=== PATIENT | female | born 1995 | race Caucasian/White ===

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

== ENCOUNTER 2017-01-18 20:52 | Emergency (ER) | payer OTHER ==
--- NOTE | 2017-01-18 21:11 | ERPHSYRPT ---
- History of Present Illness Time Seen by Provider: 01/18/17 21:00 Source: patient, family (sister) Exam Limitations: no limitations Physician History: patient presents with acute depression and suicidal thoughts sense boyfriend left; thoughts but hasn;t done anything to harm herself; similar history 21/2 years ago admitted to [facility]; called them and she was referred here; still saying wants to harm herself; not sleeping or eating well; may be pregnanct; gopo; last MP was november; some am nausea Timing/Duration: today (worse), yesterday (onset), worse Severity of Symptoms-Max: severe Severity of Symptoms-Current: severe Context related to: significant other Suicidal thoughts: specific plan Associated Symptoms: anxiety, depressed, impaired concentration, insomnia, suicidal ideation Previous symptoms: same symptoms as today (2.5 years ago) Allergies/Adverse Reactions: amphetamine [From Adderall] Allergy (Verified 01/18/17 21:17) Swelling dextroamphetamine [From Adderall] Allergy (Verified 01/18/17 21:17) Swelling Home Medications: No Home Meds [No Home Meds] 1 [facility] UD 12/19/16 [History] Hx Tetanus, Diphtheria Vaccination/Date Given: No (unknown) Hx Influenza Vaccination/Date Given: No Hx Pneumococcal Vaccination/Date Given: No - Past Medical History Pertinent Past Medical History: Yes Psycho-Social History: Anxiety, Attention Deficit Disorder, Bipolar, Depression - Past Surgical History Past Surgical History: Yes - Social History Smoking Status: Former smoker Exposure to second hand smoke: No Alcohol Use: None Drug Use: none Significant Family History: no pertinent family hx - Female History Hx Now: No (unknown late for LMP) - Review of Systems Constitutional: Malaise, No Fever, No Chills, No Weight Loss Eyes: No Symptoms Ears, Nose, & Throat: No Symptoms Respiratory: No Cough, No Dyspnea, No Wheezing Cardiac: No Chest Pain, No Palpitations, No Syncope Abdominal/Gastrointestinal: Nausea, No Abdominal Pain, No Vomiting, No Diarrhea , No Constipation Genitourinary Symptoms: No Symptoms Musculoskeletal: No Symptoms Skin: No Symptoms Neurological: No Symptoms Psychological: Anxiety, Depression, Suicidal Ideations, No Alcohol Abuse, No Drug Abuse Endocrine: No Symptoms Hematologic/Lymphatic: No Symptoms Immunological/Allergic: No Symptoms - Nursing Vital Signs Nursing Vital Signs: Initial Vital Signs Temperature 98.5 F 01/18/17 21:00 Pulse Rate 128 H 01/18/17 21:00 Respiratory Rate 18 01/18/17 21:00 Blood Pressure 166/90 01/18/17 21:00 O2 Sat by Pulse Oximetry 100 01/18/17 21:00 Pain Scale Pain Intensity 0 - Physical Exam General Appearance: moderate distress, alert, anxiety, obese (mild), other ( depressed with suicidal thoughts) Eyes, Ears, Nose, Throat Exam: normal ENT inspection, TMs normal, pharynx normal , moist mucous membranes Neck Exam: normal inspection, non-tender, supple, full range of motion, No Brudzinski, No meningismus, No JVD Respiratory Exam: normal breath sounds, lungs clear, airway intact, No chest tenderness, No respiratory distress, No rhonchi, No wheezing Cardiovascular Exam: regular rate/rhythm, normal heart sounds, normal peripheral pulses, tachycardia (128), capillary refill <2 sec, No murmur Gastrointestinal/Abdominal Exam: soft, normal bowel sounds, No tenderness, No guarding, No rebound, No organomegaly Extremities Exam: normal inspection, normal range of motion, No evidence of injury, No edema, No tenderness Peripheral Pulses: carotid (R): 4+, carotid (L): 4+, femoral (R): 4+, femoral (L ): 4+, dorsalis-pedis (R): 3+, dorsalis-pedis (L): 3+ Current Suicidality: has suicide plan Neurological Exam: alert, calm, 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, oriented x 3, responds to pain, depressed affect, flat Appearance: appropriate insight, no memory impairment, disheveled Behavior/Eye Contact/Speech: alert & cooperative, cooperative, avoids eye contact, refused to answer, decreased rate of speech Thoughts/Hallucinations: no apparent hallucination, No delusions, No grandiose, No persecution, No bahai Skin Exam: normal color, warm, dry, No rash, No petechiae SpO2 Interpretation: normal SpO2: 100 Oxygen Delivery: Room Air - Course Nursing assessment & vital signs reviewed: Yes Ordered Tests: Active Orders 24 hr Category Date Time Status Psychiatric Evaluation STAT Care 01/18/17 21:05 Active Re-Check Vital Signs STAT Care 01/18/17 21:05 Active ACETAMINOPHEN Stat Lab 01/18/17 21:20 Completed CBC W DIFF Stat Lab 01/18/17 21:20 Completed CMP Stat Lab 01/18/17 21:20 Completed CULTURE,URINE Stat Lab 01/18/17 21:30 Received ETHYL ALCOHOL Stat Lab 01/18/17 21:20 Completed HCG QUALITATIVE,SERUM Stat Lab 01/18/17 21:20 Completed SALICYLATE Stat Lab 01/18/17 21:20 Completed UA W/ MICROSCOPIC Stat Lab 01/18/17 21:30 Completed Urine Triage Profile Stat Lab 01/18/17 21:30 Completed Lab/Rad Data: Laboratory Result Diagrams 01/18/17 21:20 01/18/17 21:20 Laboratory Results 01/18/17 01/18/17 01/18/17 Range/Units 21:30 21:30 21:20 WBC (4.0-10.5) K/mm3 RBC (4.1-5.4) M/mm3 Hgb (12.0-16.0) gm/dl Hct (35-47) % MCV (78-100) fl MCH (26-32) pg MCHC (32-36) g/dl RDW (11.5-14.0) % Plt Count (150-450) K/mm3 MPV (6-9.5) fl Gran % (36.0-66.0) % Lymphocytes % (24.0-44.0) % Monocytes % (0.0-12.0) % Eosinophils % (0.00-5.0) % Basophils % (0.0-0.4) % Basophils # (0-0.4) Sodium (136-145) mEq/L Potassium (3.5-5.1) mEq/L Chloride (98-107) mEq/L Carbon Dioxide (21-32) mEq/L Anion Gap (5-15) MEQ/L BUN (9-20) mg/dL Creatinine (0.55-1.30) mg/dl Estimated GFR ML/MIN Glucose (70-110) MG/DL Calcium (8.5-10.1) mg/dL Total Bilirubin (0.2-1.0) mg/dL AST (15-37) U/L ALT (12-78) U/L Alkaline Phosphatase (46-116) U/L Serum Total Protein (6.4-8.2) gm/dL Albumin (3.4-5.0) g/dL Serum , Qual NEGATIVE (Negative) Ur Collection Type CLEAN CATCH Urine Color YELLOW (YELLOW) Urine Appearance SLIGHTLY CLOUDY (CLEAR) Urine pH 8.5 (5-6) Ur Specific [place] 1.010 (1.005-1.025) Urine Protein TRACE (Negative) Urine Ketones NEGATIVE (NEGATIVE) Urine Blood 50 (0-5) Alfonso/ul Urine Nitrite NEGATIVE (NEGATIVE) Urine Bilirubin NEGATIVE (NEGATIVE) Urine Urobilinogen 4 (0-1) mg/dL Ur Leukocyte Esterase 1+ (NEGATIVE) Urine Microscopic RBC 0-2 (0-2) /HPF Urine Microscopic WBC 2-5 (0-5) /HPF Ur Epithelial Cells MODERATE (FEW) /HPF Urine Bacteria MODERATE (NEGATIVE) /HPF Urine Mucus SLIGHT (NEGATIVE) /HPF Urine Glucose NEGATIVE (NEGATIVE) mg/dL Salicylates (2.8-20.0) mg/dl Urine Opiates Level NEG. (NEGATIVE) Ur Methadone NEG. (NEGATIVE) Acetaminophen (10-30) ug/ml Urine Barbiturates NEG. (NEGATIVE) Ur Phencyclidine (PCP) NEG. (NEGATIVE) Urine Amphetamine NEG. (NEGATIVE) U Benzodiazepine Level NEG. (NEGATIVE) Urine Cocaine NEG. (NEGATIVE) Urine Marijuana (THC) NEG. (NEGATIVE) Ethyl Alcohol (0.00-0.01) % Specimen Received 01/18/17:2135 01/18/17 01/18/17 Range/Units 21:20 21:20 WBC 12.0 H (4.0-10.5) K/mm3 RBC 4.44 (4.1-5.4) M/mm3 Hgb 11.8 L (12.0-16.0) gm/dl Hct 37.3 (35-47) % MCV 84.0 (78-100) fl MCH 26.5 (26-32) pg MCHC 31.6 L (32-36) g/dl RDW 13.2 (11.5-14.0) % Plt Count 287 (150-450) K/mm3 MPV 10.8 H (6-9.5) fl Gran % 75.8 H (36.0-66.0) % Lymphocytes % 17.0 L (24.0-44.0) % Monocytes % 5.7 (0.0-12.0) % Eosinophils % 1.3 (0.00-5.0) % Basophils % 0.2 (0.0-0.4) % Basophils # 0.02 (0-0.4) Sodium 140 (136-145) mEq/L Potassium 3.6 (3.5-5.1) mEq/L Chloride 105 (98-107) mEq/L Carbon Dioxide 24.9 (21-32) mEq/L Anion Gap 13.7 (5-15) MEQ/L BUN 6 L (9-20) mg/dL Creatinine 0.92 (0.55-1.30) mg/dl Estimated GFR > 60 ML/MIN Glucose 121 H (70-110) MG/DL Calcium 9.5 (8.5-10.1) mg/dL Total Bilirubin 0.60 (0.2-1.0) mg/dL AST 20 (15-37) U/L ALT 23 (12-78) U/L Alkaline Phosphatase 83 (46-116) U/L Serum Total Protein 7.9 (6.4-8.2) gm/dL Albumin 3.8 (3.4-5.0) g/dL Serum , Qual (Negative) Ur Collection Type Urine Color (YELLOW) Urine Appearance (CLEAR) Urine pH (5-6) Ur Specific [place] (1.005-1.025) Urine Protein (Negative) Urine Ketones (NEGATIVE) Urine Blood (0-5) Alfonso/ul Urine Nitrite (NEGATIVE) Urine Bilirubin (NEGATIVE) Urine Urobilinogen (0-1) mg/dL Ur Leukocyte Esterase (NEGATIVE) Urine Microscopic RBC (0-2) /HPF Urine Microscopic WBC (0-5) /HPF Ur Epithelial Cells (FEW) /HPF Urine Bacteria (NEGATIVE) /HPF Urine Mucus (NEGATIVE) /HPF Urine Glucose (NEGATIVE) mg/dL Salicylates < 2.8 L (2.8-20.0) mg/dl Urine Opiates Level (NEGATIVE) Ur Methadone (NEGATIVE) Acetaminophen < 2.0 L (10-30) ug/ml Urine Barbiturates (NEGATIVE) Ur Phencyclidine (PCP) (NEGATIVE) Urine Amphetamine (NEGATIVE) U Benzodiazepine Level (NEGATIVE) Urine Cocaine (NEGATIVE) Urine Marijuana (THC) (NEGATIVE) Ethyl Alcohol < 0.010 (0.00-0.01) % Specimen Received reviewed - Progress Progress: re-examined (several times) Progress Note: 01/18/17 21:13 labs pending; will get Psyche evaluation, monitor and recheck; sister at bedside 01/18/17 21:44 cbc shows slightly elevated wbc 12, other frazier fairly normal; other labs pending ; no change on recheck; Psyche eval pending; will monitor and recheck 01/18/17 21:52 BS; renal functions, lytes , chem profile, all wnl; ETOH, Acet and Salic all absent; tox screen pending; no change in exam, will monitor 01/18/17 23:25 tox screen neg; [facility]; EMS will be notified; and transfer arranged; patient notified Discussed with : Other ([facility] accepted for admission) Will see patient in: other ([facility]) Counseled pt/family regarding: lab results, diagnosis, need for follow-up, smoking cessation - Departure Time of Disposition: 23:27 Departure Disposition: Transfer (to [facility] for admission) Clinical Impression: Acute depression, Suicidal ideation Condition: Serious Critical Care Time: No Referrals: SNEHA ARZOLA [Primary Care Provider] - Instructions: Bipolar Disorder
[2017-01-18 21:27] LABS: BASOPHIL % 0.2 % (0.0-0.4); Eosinophil % 1.3 % (0.00-5.0); Granulocytes % 75.8 % (36.0-66.0); Mean Platelet Volume 10.8 fl (6-9.5); Monocytes % 5.7 % (0.0-12.0); Platelet Count 287 K/mm3 (150-450); Red Blood Count 4.44 M/mm3 (4.1-5.4); Red Cell Distribution Width 13.2 % (11.5-14.0)
[2017-01-18 21:32] LABS: Mean Corpuscular Hemoglobin 26.5 pg (26-32)
[2017-01-18 21:47] LABS: ALBUMIN 3.8 g/dL (3.4-5.0); ALKALINE PHOSPHATASE 83 U/L (46-116); ANION GAP 13.7 MEQ/L (5-15); BLOOD UREA NITROGEN 6 mg/dL (9-20); CHLORIDE 105 mEq/L (98-107); Carbon Dioxide 24.9 mEq/L (21-32); Glucose 121 MG/DL (70-110); Potassium 3.6 mEq/L (3.5-5.1); SGOT/AST 20 U/L (15-37); SGPT/ALT 23 U/L (12-78); SODIUM 140 mEq/L (136-145); Total Protein 7.9 gm/dL (6.4-8.2)
[2017-01-18 21:48] LABS: ACETAMINOPHEN < 2.0 ug/ml (10-30); ETHYL ALCOHOL < 0.010 % (0.00-0.01)
[2017-01-18 21:51] LABS: ADD URINE CULTURE? YES (NO); Bilirubin NEGATIVE (NEGATIVE); Blood 50 Ery/ul (0-5); COMPLETE URINE MICROSCOPIC? YES; Collection Type CLEAN CATCH; Glucose NEGATIVE (NEGATIVE); Leukocyte Esterase 1+ (NEGATIVE)
[2017-01-18 21:52] LABS: Bacteria MODERATE /HPF (NEGATIVE); Epithelial Cells MODERATE /HPF (FEW); Mucus SLIGHT /HPF (NEGATIVE)
[2017-01-18 22:54] VITALS: BP 121/72; PULSE 92
[2017-01-18 23:29] VITALS: O2SAT 100
== END 2017-01-19 00:10 ==
LOC: ED 20:52
DX: F32.9 Major depressive disorder, single episode, unspecified (principal); R45.851 Suicidal ideations
CPT/HCPCS: 36415; 80053; 80307; 81000; 84703; 85025; 87077; 87086; 87186; 90791; 99281; 99285; G0481; Q3014

== ENCOUNTER 2017-02-19 19:55 | Emergency (ER) | payer OTHER ==
--- NOTE | 2017-02-19 20:13 | ERPHSYRPT ---
- History of Present Illness Time Seen by Provider: 02/19/17 20:02 Historian: patient Exam Limitations: no limitations Physician History: FOR THE PAST 3 DAYS PT HAS HAD LOWER ABDOMINAL CRAMPS; FOR THE PAST 2 DAYS NAUSEA, INTERMITTENT HEADACHE AND DIARRHEA X8; TODAY VOMITING X 6 AND TEMPERATURE OF 99.2 DEGREES. Allergies/Adverse Reactions: amphetamine [From Adderall] Allergy (Verified 01/18/17 21:17) Swelling dextroamphetamine [From Adderall] Allergy (Verified 01/18/17 21:17) Swelling Home Medications: Aripiprazole 10 mg [Abilify 10 MG] 10 mg PO DAILY 02/19/17 [History] Hx Tetanus, Diphtheria Vaccination/Date Given: No (unknown) Hx Influenza Vaccination/Date Given: No Hx Pneumococcal Vaccination/Date Given: No - Review of Systems Constitutional: Other (TEMPERATURE OF 99.2 DEGREES TODAY.) Respiratory: No Dyspnea Cardiac: No Chest Pain Abdominal/Gastrointestinal: Abdominal Pain, Nausea, Vomiting, Diarrhea Neurological: Headache All Other Systems: Reviewed and Negative - Past Medical History Pertinent Past Medical History: Yes Psycho-Social History: Anxiety, Attention Deficit Disorder, Bipolar, Depression - Past Surgical History Past Surgical History: Yes - Social History Smoking Status: Former smoker How long have you smoked: 2 yrs Exposure to second hand smoke: No Alcohol Use: None Drug Use: none Patient Lives Alone: No Significant Family History: no pertinent family hx - Female History Hx Now: No (unknown late for LMP) - Nursing Vital Signs Nursing Vital Signs: Initial Vital Signs Temperature 98.4 F 02/19/17 20:01 Pulse Rate 99 H 02/19/17 20:01 Respiratory Rate 20 02/19/17 20:01 Blood Pressure 158/79 02/19/17 20:01 O2 Sat by Pulse Oximetry 100 02/19/17 20:01 Pain Scale Pain Intensity 2 - Physical Exam General Appearance: alert Eye Exam: PERRL/EOMI Ears, Nose, Throat Exam: TMs normal, pharyngeal erythema (MILD) Neck Exam: normal inspection Respiratory Exam: lungs clear Cardiovascular Exam: normal heart sounds Gastrointestinal/Abdomen Exam: soft, normal bowel sounds, No tenderness Back Exam: normal range of motion Extremity Exam: normal inspection, No pedal edema Neurologic Exam: alert, cooperative, normal mood/affect Skin Exam: warm, dry - Course Nursing assessment & vital signs reviewed: Yes Ordered Tests: Active Orders 24 hr Category Date Time Status AMYLASE Stat Lab 02/19/17 20:27 Completed CBC W DIFF Stat Lab 02/19/17 20:27 Completed CMP Stat Lab 02/19/17 20:27 Completed CULTURE, THROAT Stat Lab 02/19/17 20:27 Received HCG QUALITATIVE,SERUM Stat Lab 02/19/17 20:27 Completed LIPASE Stat Lab 02/19/17 20:27 Completed [place] Screen Stat Lab 02/19/17 20:27 Completed STREP SCREEN-BETA A Stat Lab 02/19/17 20:27 Completed UA W/RFX UR CULTURE Stat Lab 02/19/17 21:00 Completed Lab/Rad Data: Laboratory Result Diagrams 02/19/17 20:27 02/19/17 20:27 Laboratory Results 02/19/17 02/19/17 02/19/17 Range/Units 21:00 20:27 20:27 WBC (4.0-10.5) K/mm3 RBC (4.1-5.4) M/mm3 Hgb (12.0-16.0) gm/dl Hct (35-47) % MCV (78-100) fl MCH (26-32) pg MCHC (32-36) g/dl RDW (11.5-14.0) % Plt Count (150-450) K/mm3 MPV (6-9.5) fl Gran % (36.0-66.0) % Lymphocytes % (24.0-44.0) % Monocytes % (0.0-12.0) % Eosinophils % (0.00-5.0) % Basophils % (0.0-0.4) % Basophils # (0-0.4) Sodium (136-145) mEq/L Potassium (3.5-5.1) mEq/L Chloride (98-107) mEq/L Carbon Dioxide (21-32) mEq/L Anion Gap (5-15) MEQ/L BUN (9-20) mg/dL Creatinine (0.55-1.30) mg/dl Estimated GFR ML/MIN Glucose (70-110) MG/DL Calcium (8.5-10.1) mg/dL Total Bilirubin (0.2-1.0) mg/dL AST (15-37) U/L ALT (12-78) U/L Alkaline Phosphatase (46-116) U/L Serum Total Protein (6.4-8.2) gm/dL Albumin (3.4-5.0) g/dL Amylase (25-115) U/L Lipase (73-393) U/L Serum , Qual NEGATIVE (Negative) Ur Collection Type CLEAN CATCH Urine Color YELLOW (YELLOW) Urine Appearance CLEAR (CLEAR) Urine pH 6.0 (5-6) Ur Specific [place] 1.010 (1.005-1.025) Urine Protein NEGATIVE (Negative) Urine Ketones NEGATIVE (NEGATIVE) Urine Blood NEGATIVE (0-5) Alfonso/ul Urine Nitrite NEGATIVE (NEGATIVE) Urine Bilirubin NEGATIVE (NEGATIVE) Urine Urobilinogen NORMAL (0-1) mg/dL Ur Leukocyte Esterase NEGATIVE (NEGATIVE) Urine Glucose NEGATIVE (NEGATIVE) mg/dL Monoscreen NEGATIVE (Negative) Streptococcus Screen NEGATIVE (Negative) Specimen Received 02/19/17 2100 02/19/17 02/19/17 Range/Units 20:27 20:27 WBC 8.8 (4.0-10.5) K/mm3 RBC 4.49 (4.1-5.4) M/mm3 Hgb 11.8 L (12.0-16.0) gm/dl Hct 38.0 (35-47) % MCV 84.6 (78-100) fl MCH 26.2 (26-32) pg MCHC 31.1 L (32-36) g/dl RDW 13.7 (11.5-14.0) % Plt Count 265 (150-450) K/mm3 MPV 10.7 H (6-9.5) fl Gran % 66.8 H (36.0-66.0) % Lymphocytes % 24.3 (24.0-44.0) % Monocytes % 7.6 (0.0-12.0) % Eosinophils % 1.1 (0.00-5.0) % Basophils % 0.2 (0.0-0.4) % Basophils # 0.02 (0-0.4) Sodium 141 (136-145) mEq/L Potassium 3.5 (3.5-5.1) mEq/L Chloride 105 (98-107) mEq/L Carbon Dioxide 25.1 (21-32) mEq/L Anion Gap 14.8 (5-15) MEQ/L BUN 10 (9-20) mg/dL Creatinine 0.67 (0.55-1.30) mg/dl Estimated GFR > 60 ML/MIN Glucose 88 (70-110) MG/DL Calcium 9.1 (8.5-10.1) mg/dL Total Bilirubin 0.40 (0.2-1.0) mg/dL AST 12 L (15-37) U/L ALT 25 (12-78) U/L Alkaline Phosphatase 74 (46-116) U/L Serum Total Protein 7.7 (6.4-8.2) gm/dL Albumin 4.0 (3.4-5.0) g/dL Amylase 44 (25-115) U/L Lipase 161 (73-393) U/L Serum , Qual (Negative) Ur Collection Type Urine Color (YELLOW) Urine Appearance (CLEAR) Urine pH (5-6) Ur Specific [place] (1.005-1.025) Urine Protein (Negative) Urine Ketones (NEGATIVE) Urine Blood (0-5) Alfonso/ul Urine Nitrite (NEGATIVE) Urine Bilirubin (NEGATIVE) Urine Urobilinogen (0-1) mg/dL Ur Leukocyte Esterase (NEGATIVE) Urine Glucose (NEGATIVE) mg/dL Monoscreen (Negative) Streptococcus Screen (Negative) Specimen Received - Departure Time of Disposition: 22:48 Departure Disposition: Home Clinical Impression: VOMITING, DIARRHEA, ABDOMINAL CRAMPS Condition: Stable Critical Care Time: No Referrals: SNEHA ARZOLA [Primary Care Provider] - Instructions: Vomiting -- Adult, Diarrhea and Traveler's Diarrhea -- Adult, Abdominal Pain-Adult Additional Instructions: FOLLOW UP WITH PRIVATE DOCTOR TOMORROW. Prescriptions: Ondansetron [Zofran Odt] 4 mg PO Q4H PRN PRN #14 tab.rapdis PRN Reason: Nausea/Vomiting
[2017-02-19 20:30] LABS: BASOPHIL % 0.2 % (0.0-0.4); Eosinophil % 1.1 % (0.00-5.0); Granulocytes % 66.8 % (36.0-66.0); Lymphocytes % 24.3 % (24.0-44.0); Mean Cell Volume 84.6 fl (78-100); Mean Platelet Volume 10.7 fl (6-9.5); Monocytes % 7.6 % (0.0-12.0); Platelet Count 265 K/mm3 (150-450); Red Blood Count 4.49 M/mm3 (4.1-5.4); Red Cell Distribution Width 13.7 % (11.5-14.0); White Blood Count 8.8 K/mm3 (4.0-10.5)
[2017-02-19 20:42] LABS: Mean Corpuscular Hemoglobin 26.2 pg (26-32)
[2017-02-19 20:56] LABS: ALKALINE PHOSPHATASE 74 U/L (46-116); ANION GAP 14.8 MEQ/L (5-15); BLOOD UREA NITROGEN 10 mg/dL (9-20); CHLORIDE 105 mEq/L (98-107); Carbon Dioxide 25.1 mEq/L (21-32); Glucose 88 MG/DL (70-110); LIPASE 161 U/L (73-393); Potassium 3.5 mEq/L (3.5-5.1); SGOT/AST 12 U/L (15-37); SGPT/ALT 25 U/L (12-78); SODIUM 141 mEq/L (136-145); Total Protein 7.7 gm/dL (6.4-8.2)
[2017-02-19 22:11] VITALS: O2SAT 98
[2017-02-19 22:27] LABS: ADD URINE CULTURE? NO (NO); Bilirubin NEGATIVE (NEGATIVE); Blood NEGATIVE Ery/ul (0-5); COMPLETE URINE MICROSCOPIC? NO; Collection Type CLEAN CATCH; Glucose NEGATIVE (NEGATIVE); Leukocyte Esterase NEGATIVE (NEGATIVE)
[2017-02-19] MEDS ORDERED: Phenergan 25 MG INJ IM ONE (22:49)
[2017-02-19] MEDS ORDERED: Phenergan 25 MG INJ ONE (23:02)
[2017-02-19 23:10] VITALS: BP 148/78; PULSE 80
== END 2017-02-19 23:19 | disposition home or self-care (01) ==
LOC: ED 19:55
DX: R11.2 Nausea with vomiting, unspecified (principal); R19.7 Diarrhea, unspecified; R10.30 Lower abdominal pain, unspecified; R51 Headache
CPT/HCPCS: 36415; 80053; 81002; 82150; 83690; 84703; 85025; 86308; 87070; 87430; 96372; 99283; J2550

== ENCOUNTER 2017-12-23 16:17 | Emergency (ER) | payer OTHER ==
--- NOTE | 2017-12-23 16:55 | ERPHSYRPT ---
- History of Present Illness Time Seen by Provider: 12/23/17 16:51 Source: patient Exam Limitations: no limitations Patient Subjective Stated Complaint: pt complains of intermittent shortness of breath for 2 days. states she was sitting at the kitchen table today when she suddenly felt dizzy and short of breath. pt denies cough. pt denies fever. pt denies pain. Triage Nursing Assessment: pt is aox3, pupils perrl, resps easy and non labored , lung sounds are clear throughout all rivera, pt is able to speak in 6-7 word complete sentences. radial pulses are strong and equal. cap refill <3. pt skin in pale warm and dry. Physician History: The patient is a 22-year-old female with her boyfriend complaining that she has been "dizzy, nauseated, short of breath, and having pelvic pain for 2 days". All of these symptoms are intermittent. She is no longer short of breath. That lasted for a brief moment while at home today. When she tries to eat something she feels nauseated. She sometimes has pain on both sides of her groin. She stands up she sometimes is dizzy. She does not know if she is . Her past medical history is unremarkable. Timing/Duration: day(s) (2), intermittent, worse Severity: mild Modifying Factors: Improves With: nothing Associated Symptoms: nausea, abdominal pain, shortness of breath Allergies/Adverse Reactions: amphetamine [From Adderall] Allergy (Verified 01/18/17 21:17) Swelling dextroamphetamine [From Adderall] Allergy (Verified 01/18/17 21:17) Swelling Home Medications: Aripiprazole 10 mg [Abilify 10 MG] 10 mg PO DAILY 02/19/17 [History] Hx Tetanus, Diphtheria Vaccination/Date Given: Yes Hx Influenza Vaccination/Date Given: No Hx Pneumococcal Vaccination/Date Given: No Immunizations Up to Date: Yes - Review of Systems Constitutional: No Fever, No Chills Eyes: No Symptoms Ears, Nose, & Throat: No Symptoms Respiratory: Dyspnea, No Cough Cardiac: No Chest Pain, No Edema, No Syncope Abdominal/Gastrointestinal: Abdominal Pain Genitourinary Symptoms: No Dysuria Musculoskeletal: No Symptoms Skin: No Rash Neurological: Dizziness Psychological: No Symptoms Endocrine: No Symptoms Hematologic/Lymphatic: No Symptoms Immunological/Allergic: No Symptoms All Other Systems: Reviewed and Negative - Past Medical History Pertinent Past Medical History: Yes Psycho-Social History: Anxiety, Attention Deficit Disorder, Bipolar, Depression Other Medical History: adhd - Past Surgical History Past Surgical History: Yes - Social History Smoking Status: Current some day smoker How long have you smoked: 2 yrs Exposure to second hand smoke: No Alcohol Use: None Drug Use: none Patient Lives Alone: No Significant Family History: no pertinent family hx - Female History Hx Last Menstrual Period: 12/16/17 Hx Now: Yes - Nursing Vital Signs Nursing Vital Signs: Initial Vital Signs Temperature 99.0 F 12/23/17 16:18 Pulse Rate 93 H 12/23/17 16:18 Respiratory Rate 20 12/23/17 16:18 Blood Pressure 133/89 12/23/17 16:18 O2 Sat by Pulse Oximetry 98 12/23/17 16:18 Pain Scale Pain Intensity 0 - Physical Exam General Appearance: no apparent distress, alert Eye Exam: PERRL/EOMI, eyes nml inspection Ears, Nose, Throat Exam: normal ENT inspection, TMs normal, pharynx normal, moist mucous membranes Neck Exam: normal inspection, non-tender, supple, full range of motion Respiratory Exam: normal breath sounds, lungs clear, No respiratory distress Cardiovascular Exam: tachycardia Gastrointestinal/Abdomen Exam: soft, normal bowel sounds, No tenderness, No mass Pelvic Exam: not done Rectal Exam: not done Back Exam: normal inspection, normal range of motion, No CVA tenderness, No vertebral tenderness Extremity Exam: normal inspection, normal range of motion, pelvis stable Neurologic Exam: alert, oriented x 3, cooperative, normal mood/affect, nml cerebellar function, nml station & gait, sensation nml, No motor deficits Skin Exam: normal color, warm, dry, No rash Lymphatic Exam: No adenopathy SpO2 Interpretation: normal SpO2: 98 Oxygen Delivery: Room Air Ordered Tests: Active Orders 24 hr Category Date Time Status HCG,QUALITATIVE URINE Stat Lab 12/23/17 18:00 Completed UA W/RFX UR CULTURE Stat Lab 12/23/17 18:00 Completed Lab/Rad Data: Laboratory Results 12/23/17 12/23/17 Range/Units 18:00 18:00 Ur Collection Type CLEAN CATCH Urine Color YELLOW (YELLOW) Urine Appearance CLEAR (CLEAR) Urine pH 7.0 (5-6) Ur Specific [place] 1.015 (1.005-1.025) Urine Protein NEGATIVE (Negative) Urine Ketones NEGATIVE (NEGATIVE) Urine Blood NEGATIVE (0-5) Alfonso/ul Urine Nitrite NEGATIVE (NEGATIVE) Urine Bilirubin NEGATIVE (NEGATIVE) Urine Urobilinogen NORMAL (0-1) mg/dL Ur Leukocyte Esterase NEGATIVE (NEGATIVE) Urine Culture Reflexed NO (NO) Urine Glucose NEGATIVE (NEGATIVE) mg/dL Urine HCG, Qual NEGATIVE (Negative) Specimen Received 12/23/17 1800 - Progress Progress: unchanged Counseled pt/family regarding: lab results, diagnosis, need for follow-up - Departure Time of Disposition: 18:26 Departure Disposition: Home Clinical Impression: Dizziness Condition: Stable Critical Care Time: No Referrals: SNEHA ARZOLA [Primary Care Provider] -
[2017-12-23 18:10] LABS: Appearance CLEAR (CLEAR); Specific Gravity 1.015 (1.005-1.025)
[2017-12-23 18:11] LABS: Bilirubin NEGATIVE (NEGATIVE); Blood NEGATIVE Ery/ul (0-5); Glucose NEGATIVE (NEGATIVE); Ketones NEGATIVE (NEGATIVE); Leukocyte Esterase NEGATIVE (NEGATIVE); Nitrite NEGATIVE (NEGATIVE); Protein,Urine Dip NEGATIVE (Negative); Urobilinogen NORMAL mg/dL (0-1)
[2017-12-23 18:42] VITALS: BP 114/78; PULSE 80; O2SAT 97
== END 2017-12-23 18:42 | disposition home or self-care (01) ==
LOC: ED 16:17
DX: R42 Dizziness and giddiness (principal); R06.02 Shortness of breath; R11.0 Nausea; R10.9 Unspecified abdominal pain
CPT/HCPCS: 81002; 84703; 99283

== ENCOUNTER 2018-06-06 11:53 | Observation (INO) | payer OTHER ==
[2018-06-06 13:30] VITALS: BP 134/67; PULSE 89
[2018-06-06 13:45] LABS: Amphetamine,Urine NEGATIVE (NEGATIVE); Barbiturate,Urine NEGATIVE (NEGATIVE); Benzodiazepine,Urine NEGATIVE (NEGATIVE); Cocaine,Urine NEGATIVE (NEGATIVE); Methadone,Urine NEGATIVE (NEGATIVE); PCP,Urine NEGATIVE (NEGATIVE); THC,Urine NEGATIVE (NEGATIVE)
[2018-06-06 13:47] LABS: Opiate,Urine NEGATIVE (NEGATIVE)
== END 2018-06-06 13:25 | disposition home or self-care (01) ==
LOC: OB 11:53
PROVIDERS: ADMIT Family Medicine; ATTEND Family Medicine
DX: Z34.03 Encounter for supervision of normal first pregnancy, third trimester (principal)
CPT/HCPCS: 80307; G0378

== ENCOUNTER 2018-06-17 16:18 | Observation (INO) | payer OTHER ==
[2018-06-17 17:11] LABS: BASOPHIL % 0.1 % (0.0-0.4); Basophil (Absolute #) 0.01 (0-0.4); Eosinophil % 0.8 % (0.00-5.0); Eosinophil (Absolute #) 0.08 (0-0.5); Granulocyte Absolute (ANC) 7.28 (1.4-6.9); Granulocytes % 76.6 % (36.0-66.0); Hematocrit 32.2 % (35-47); Hemoglobin 10.2 gm/dl (12.0-16.0); Lymphocytes % 16.8 % (24.0-44.0); Mean Cell Volume 92.8 fl (78-100); Mean Corpuscular Hgb Concent. 31.7 g/dl (32-36); Mean Platelet Volume 11.5 fl (6-9.5); Monocyte (Absolute #) 0.54 (0.0-1.3); Monocytes % 5.7 % (0.0-12.0); Platelet Count 176 K/mm3 (150-450); Red Blood Count 3.47 M/mm3 (4.1-5.4); Red Cell Distribution Width 13.2 % (11.5-14.0); White Blood Count 9.5 K/mm3 (4.0-10.5)
[2018-06-17 17:22] VITALS: PULSE 88
[2018-06-17 17:37] LABS: Mean Corpuscular Hemoglobin 29.3 pg (26-32)
[2018-06-17 17:45] LABS: ALBUMIN 3.7 g/dL (3.5-5.0); ALKALINE PHOSPHATASE 57 U/L (38-126); ANION GAP 12.4 MEQ/L (5-15); BLOOD UREA NITROGEN 5 mg/dL (7-17); CHLORIDE 106 mmol/L (98-107); Calcium 9.2 mg/dL (8.4-10.2); Carbon Dioxide 20 mmol/L (22-30); Creatinine 1 0.35 mg/dL (0.52-1.04); Glucose 79 mg/dL (74-106); SGOT/AST 37 U/L (14-36); SGPT/ALT 12 U/L (0-35); SODIUM 134 mmol/L (137-145); Total Protein 7.1 g/dL (6.3-8.2)
[2018-06-17 17:50] LABS: Potassium 4.4 mmol/L (3.5-5.1)
[2018-06-17 18:52] VITALS: BP 116/56
== END 2018-06-17 18:10 | disposition home or self-care (01) ==
LOC: OB 16:18
PROVIDERS: ADMIT Family Medicine; ATTEND Family Medicine
DX: Z34.02 Encounter for supervision of normal first pregnancy, second trimester (principal)
CPT/HCPCS: 36415; 80053; 85025; G0378

== ENCOUNTER 2018-08-15 12:28 | Observation (INO) | payer OTHER ==
[2018-08-15] MEDS ORDERED: Adacel Vial IM ONE (13:35)
--- NOTE | 2018-08-15 15:15 | XRAY ---
Indication: Evaluate HANSEL. Four-quadrant HANSEL is 11.7 cm, previously 11.9 cm on August 08, 2018 exam.
[2018-08-15] MEDS ORDERED: Lactated Ringers 1,000 ML IV SCH ×2 (15:30→17:00)
[2018-08-15 16:48] LABS: Appearance SLIGHTLY CLOUDY (CLEAR); Bacteria FEW /HPF (NEGATIVE); Bilirubin NEGATIVE (NEGATIVE); Blood NEGATIVE Ery/ul (0-5); Epithelial Cells RARE /HPF (FEW); Glucose NEGATIVE (NEGATIVE); Hyaline Casts 0-2 /LPF (0-2); Ketones SMALL (NEGATIVE); Leukocyte Esterase SMALL (NEGATIVE); Mucus SLIGHT /HPF (NEGATIVE); Nitrite NEGATIVE (NEGATIVE); Protein,Urine Dip NEGATIVE (Negative); RBC 0-2 /HPF (0-2); Specific Gravity 1.016 (1.005-1.025); Urobilinogen 2 mg/dL (0-1)
[2018-08-15 20:40] VITALS: BP 130/58; PULSE 94
== END 2018-08-15 20:15 | disposition home or self-care (01) ==
LOC: OB 12:28 → UNDODISOB 12:40
PROVIDERS: ADMIT Family Medicine; ATTEND Family Medicine
DX: Z34.03 Encounter for supervision of normal first pregnancy, third trimester (principal)
CPT/HCPCS: 59025; 76815; 81001; 87086; 90471; G0378; 90715

== ENCOUNTER 2018-09-01 20:18 | Emergency (ER) | payer OTHER ==
--- NOTE | 2018-09-01 21:16 | ERPHSYRPT ---
- History of Present Illness Time Seen by Provider: 09/01/18 21:04 Source: patient Exam Limitations: no limitations Patient Subjective Stated Complaint: Swelling to BLE Triage Nursing Assessment: Patient brought back to ED via w/c and transferred to bed with assist of 2. Patient complains of swelling to BLE after delivery of baby on 08/28/18. 1+ pitting edema noted to BLE. Patient states she wasn't swollen after delivery. Patient stated swelling started yesterday. Patient complains of weakness. Skin noted to be pale, warm and dry. Patient's pad noted to have brown/yellow drainage with foul smell. Patient denies pain or discomfort. Physician History: 23-year-old white female with history of anxiety, ADD, bipolar depression who states she has had gestational diabetes and gestational high blood pressure. And who is 1 para 1 who delivered a vaginal delivery 4 days ago. Arrives with complaints of general malaise feels weak states that she has edema in her lower extremities. Past medical history includes anxiety, ADD, bipolar depression, gestational diabetes, gestational hypertension. Past surgical history includes tonsillectomy. Timing/Duration: yesterday Severity: moderate Modifying Factors: Improves With: nothing Associated Symptoms: malaise, weakness, No nausea, No vomiting, No abdominal pain, No shortness of breath, No heartburn, No diaphoresis, No cough, No chills , No chest pain, No fever, No headaches, No loss of appetite, No syncope, No seizure Allergies/Adverse Reactions: amphetamine [From Adderall] Allergy (Verified 09/01/18 20:33) Swelling dextroamphetamine [From Adderall] Allergy (Verified 09/01/18 20:33) Swelling Home Medications: Vits W-Ca,Fe,FA(<1Mg) [] 1 tablet PO DAILY 06/06/18 [History] Hx Tetanus, Diphtheria Vaccination/Date Given: Yes Hx Influenza Vaccination/Date Given: No Hx Pneumococcal Vaccination/Date Given: No Immunizations Up to Date: Yes - Review of Systems Constitutional: No Fever, No Chills Eyes: No Symptoms Ears, Nose, & Throat: No Symptoms Respiratory: No Cough, No Dyspnea Cardiac: Edema (patient feels like her lower extremities are swollen) Abdominal/Gastrointestinal: No Abdominal Pain, No Nausea, No Vomiting, No Diarrhea Genitourinary Symptoms: Other (patient states some yellow discharge on her pad) Musculoskeletal: No Back Pain, No Neck Pain Skin: No Rash Neurological: No Dizziness, No Focal Weakness, No Sensory Changes Psychological: No Symptoms Endocrine: No Symptoms All Other Systems: Reviewed and Negative - Past Medical History Pertinent Past Medical History: Yes Psycho-Social History: Anxiety, Attention Deficit Disorder, Bipolar, Depression Other Medical History: adhd - Past Surgical History Past Surgical History: Yes - Social History Smoking Status: Never smoker How long have you smoked: 3 years Exposure to second hand smoke: No Alcohol Use: None Drug Use: none Patient Lives Alone: No Significant Family History: no pertinent family hx - Female History Hx Last Menstrual Period: 9 months ago Hx Now: No - Nursing Vital Signs Nursing Vital Signs: Initial Vital Signs Temperature 98.8 F 09/01/18 20:35 Pulse Rate 83 09/01/18 20:35 Respiratory Rate 20 09/01/18 20:35 Blood Pressure 152/89 09/01/18 20:35 O2 Sat by Pulse Oximetry 96 09/01/18 20:35 Pain Scale Pain Intensity 0 - Physical Exam General Appearance: no apparent distress, alert Eye Exam: PERRL/EOMI, eyes nml inspection Ears, Nose, Throat Exam: normal ENT inspection, TMs normal, pharynx normal, moist mucous membranes Neck Exam: normal inspection, non-tender, supple, full range of motion Respiratory Exam: normal breath sounds (I'm not impressed with h), lungs clear, No respiratory distress Cardiovascular Exam: regular rate/rhythm, normal heart sounds, normal peripheral pulses, capillary refill <2 sec Gastrointestinal/Abdomen Exam: soft, normal bowel sounds, No tenderness, No mass Pelvic Exam: other (external examination only: No erythema no obvious drainage.) Extremity Exam: normal inspection, normal range of motion, pelvis stable, other (slight edemapossibly 1+ lower extremities) Neurologic Exam: alert, oriented x 3, cooperative, power tool repairer II-XII nml as tested, normal mood/affect, nml cerebellar function, nml station & gait, sensation nml, other (no clonus DTRs 2 over 4), No motor deficits Skin Exam: normal color, warm, dry, No rash Lymphatic Exam: No adenopathy SpO2 Interpretation: normal (96SHE WAS SHE SEEN HER DOCT%), borderline oxygenation SpO2: 96 - Course Nursing assessment & vital signs reviewed: Yes Ordered Tests: Active Orders 24 hr Category Date Time Status ACCUCHECK [Accucheck] STAT Care 09/01/18 20:55 Active EKG-ER Only STAT Care 09/01/18 21:09 Active IV Insertion STAT Care 09/01/18 20:55 Active AMYLASE Stat Lab 09/01/18 21:30 Completed CBC W DIFF Stat Lab 09/01/18 21:30 Completed CMP Stat Lab 09/01/18 21:30 Completed CULTURE,URINE Stat Lab 09/01/18 21:30 Received LIPASE Stat Lab 09/01/18 21:30 Completed UA W/RFX UR CULTURE Stat Lab 09/01/18 21:30 Completed Medication Summary Discontinued Medications Generic Name Dose Route Start Last Admin Trade Name Freq PRN Reason Stop Dose Admin Cephalexin HCl 500 mg 09/01/18 22:52 Keflex 500 Mg PO 09/01/18 22:53 STAT ONE Lab/Rad Data: Laboratory Result Diagrams 09/01/18 21:30 09/01/18 21:30 Laboratory Results 09/01/18 09/01/18 09/01/18 Range/Units 21:30 21:30 21:30 WBC 9.3 (4.0-10.5) K/mm3 RBC 3.72 L (4.1-5.4) M/mm3 Hgb 10.5 L (12.0-16.0) gm/dl Hct 33.6 L (35-47) % MCV 90.3 (78-100) fl MCH 28.2 (26-32) pg MCHC 31.3 L (32-36) g/dl RDW 13.4 (11.5-14.0) % Plt Count 238 (150-450) K/mm3 MPV 11.1 H (6-9.5) fl Gran % 61.3 (36.0-66.0) % Eos # (Auto) 0.36 (0-0.5) Absolute Lymphs (auto) 2.57 (1.0-4.6) Absolute Monos (auto) 0.65 (0.0-1.3) Lymphocytes % 27.7 (24.0-44.0) % Monocytes % 7.0 (0.0-12.0) % Eosinophils % 3.9 (0.00-5.0) % Basophils % 0.1 (0.0-0.4) % Absolute Granulocytes 5.68 (1.4-6.9) Basophils # 0.01 (0-0.4) Sodium 141 (137-145) mmol/L Potassium 4.0 (3.5-5.1) mmol/L Chloride 109 H (98-107) mmol/L Carbon Dioxide 26 (22-30) mmol/L Anion Gap 10.0 (5-15) MEQ/L BUN 11 (7-17) mg/dL Creatinine 0.52 (0.52-1.04) mg/dL Estimated GFR > 60.0 ML/MIN Glucose 70 L (74-106) mg/dL Calcium 9.4 (8.4-10.2) mg/dL Total Bilirubin 0.50 (0.2-1.3) mg/dL AST 23 (14-36) U/L ALT 18 (0-35) U/L Alkaline Phosphatase 81 (38-126) U/L Serum Total Protein 6.7 (6.3-8.2) g/dL Albumin 3.5 (3.5-5.0) g/dL Amylase 61 (30-110) U/L Lipase 81 (23-300) U/L Urine Color YELLOW (YELLOW) Urine Appearance SLIGHTLY CLOUDY (CLEAR) Urine pH 6.0 (5-6) Ur Specific [place] 1.021 (1.005-1.025) Urine Protein NEGATIVE (Negative) Urine Ketones NEGATIVE (NEGATIVE) Urine Blood LARGE (0-5) Alfonso/ul Urine Nitrite NEGATIVE (NEGATIVE) Urine Bilirubin NEGATIVE (NEGATIVE) Urine Urobilinogen NEGATIVE (0-1) mg/dL Ur Leukocyte Esterase SMALL (NEGATIVE) Urine WBC (Auto) 16-25 (0-5) /HPF Urine RBC (Auto) 26-50 (0-2) /HPF U Epithel Cells (Auto) RARE (FEW) /HPF Urine Bacteria (Auto) RARE (NEGATIVE) /HPF Urine Mucus (Auto) SLIGHT (NEGATIVE) /HPF Urine Culture Reflexed YES (NO) Urine Glucose NEGATIVE (NEGATIVE) mg/dL - Progress Progress: improved Progress Note: 09/01/18 21:13 23-year-old white female with history of anxiety, ADD, bipolar depression who states she has had gestational diabetes and related hypertension. Who delivered a baby 4 days ago. Patient arrives with complaint of bilateral leg swelling she feels this is worse since yesterday. She has general malaise she has no nausea no vomiting she does state she's had some yellow discharge on her pad. She has no abdominal pain. On physical examination patient is talking on the phone and does not appear to be in acute distress as I entered the room. Head is atraumatic normocephalic. Eyes PERRLA EOMI fundi are unremarkable. Ears TMs galindo intact bilaterally. Nose is clear. Throat is clear. Neck is supple. Lungs are clear heart regular rate and rhythm without murmur. Abdomen soft nontender nondistended positive bowel sounds. Extremities full range of motion pulses equal and symmetrical 2 over 4 perhaps 1 + edema I really don't appreciate pitting at this time. Neuro patient alert, oriented 3 cranial nerves II through XII are intact, DTRs symmetrical 2 over 4, negative clonus. Impression 1. Status post vaginal delivery. 2. History of -induced hypertension. 3. History of gestational diabetes. 4. Lower extremity edema. Plan patient appears to be stable Will go ahead and obtain CBC CMP amylase lipase UA. Blood pressure initially on arrival was 152/89 spontaneously decreased to 112/ 77. 09/01/18 22:47 Patient's EKG sinus rhythm 77 bpm normal axis no acute ST or T wave changes normal EKG. Patient's chemistry essentially normal liver enzymes are normal glucose was 70 patient offered food Patient's CBC, white count 9.3 hemoglobin 10.5 hematocrit 33.6 platelets 238 Urinalysis shows 16-25 white cells per high-power field negative nitrites Impression 1 status post vaginal delivery postdelivery date #4 2. Mild lower extremity edema. 3. UTI. Plan home, Keflex 500 mg orally 4 times a day for 7 days. Follow-up with Dr. Zuñiga tomorrow as planned. Return for acute distress or for severe symptoms. - Departure Departure Disposition: Home Clinical Impression: Lower extremity edema, recent vaginal delivery PDD#4 UTI (urinary tract infection) Qualifiers: Urinary tract infection type: site unspecified Hematuria presence: with hematuria Qualified Code(s): N39.0 - Urinary tract infection, site not specified Condition: Fair Critical Care Time: No Referrals: SNEHA ZUÑIGA [Primary Care Provider] - Additional Instructions: Return home. Keflex as prescribed. Follow-up with Dr. Yogesh tomorrow as planned. Return for acute distress or for severe symptoms. Prescriptions: Cephalexin Mh 500 mg [Keflex 500 mg] 500 mg PO Q6H #28 capsule
[2018-09-01 21:47] LABS: BASOPHIL % 0.1 % (0.0-0.4); Basophil (Absolute #) 0.01 (0-0.4); Eosinophil % 3.9 % (0.00-5.0); Eosinophil (Absolute #) 0.36 (0-0.5); Granulocyte Absolute (ANC) 5.68 (1.4-6.9); Granulocytes % 61.3 % (36.0-66.0); Hematocrit 33.6 % (35-47); Hemoglobin 10.5 gm/dl (12.0-16.0); Lymphocyte (Absolute #) 2.57 (1.0-4.6); Lymphocytes % 27.7 % (24.0-44.0); Mean Cell Volume 90.3 fl (78-100); Mean Corpuscular Hemoglobin 28.2 pg (26-32); Mean Corpuscular Hgb Concent. 31.3 g/dl (32-36); Mean Platelet Volume 11.1 fl (6-9.5); Monocyte (Absolute #) 0.65 (0.0-1.3); Platelet Count 238 K/mm3 (150-450); Red Blood Count 3.72 M/mm3 (4.1-5.4); Red Cell Distribution Width 13.4 % (11.5-14.0); White Blood Count 9.3 K/mm3 (4.0-10.5)
[2018-09-01 21:56] LABS: Appearance SLIGHTLY CLOUDY (CLEAR); Bacteria RARE /HPF (NEGATIVE); Bilirubin NEGATIVE (NEGATIVE); Blood LARGE Ery/ul (0-5); Epithelial Cells RARE /HPF (FEW); Glucose NEGATIVE (NEGATIVE); Ketones NEGATIVE (NEGATIVE); Leukocyte Esterase SMALL (NEGATIVE); Mucus SLIGHT /HPF (NEGATIVE); Nitrite NEGATIVE (NEGATIVE); Protein,Urine Dip NEGATIVE (Negative); RBC 26-50 /HPF (0-2); Specific Gravity 1.021 (1.005-1.025); Urobilinogen NEGATIVE mg/dL (0-1)
[2018-09-01 22:00] LABS: ALBUMIN 3.5 g/dL (3.5-5.0); ALKALINE PHOSPHATASE 81 U/L (38-126); AMYLASE 61 U/L (30-110); BLOOD UREA NITROGEN 11 mg/dL (7-17); CHLORIDE 109 mmol/L (98-107); Calcium 9.4 mg/dL (8.4-10.2); Carbon Dioxide 26 mmol/L (22-30); Creatinine 1 0.52 mg/dL (0.52-1.04); Glucose 70 mg/dL (74-106); LIPASE 81 U/L (23-300); SGOT/AST 23 U/L (14-36); SGPT/ALT 18 U/L (0-35); SODIUM 141 mmol/L (137-145); Total Protein 6.7 g/dL (6.3-8.2)
[2018-09-01] MEDS ORDERED: KEFLEX 500 MG PO ONE (22:52)
[2018-09-01] MEDS ORDERED: KEFLEX 500 MG ONE (22:57)
[2018-09-01 23:04] VITALS: BP 108/71; PULSE 68; O2SAT 98
== END 2018-09-01 23:27 | disposition home or self-care (01) ==
LOC: ED 20:18
DX: O86.20 Urinary tract infection following delivery, unspecified (principal); R60.0 Localized edema; O13.5 Gestational [pregnancy-induced] hypertension without significant proteinuria, complicating the puerperium; O24.439 Gestational diabetes mellitus in the puerperium, unspecified control
CPT/HCPCS: 36000; 36415; 80053; 81001; 82150; 82962; 83690; 85025; 87086; 93005; 99284; A9270-GY

== ENCOUNTER 2020-01-11 16:14 | Emergency (ER) | payer OTHER ==
[2020-01-11] MEDS ORDERED: Sodium Chloride 0.9% 1000 ML 1,000 ML IV STA (16:36)
--- NOTE | 2020-01-11 17:11 | XRAY ---
Indication: Bleeding. Two-dimensional transvaginal early OB ultrasound performed. Comparison: None for this . Uterus is retroflexed without focal solid/cystic mass. No endometrial cavity gestational sac, mass, or fluid collection. Endometrial stripe measures 5.9 mm. Right ovary measures 3.9 x 2.5 x 3.2 cm and the left measures 4.1 x 2.2 x 2.4 cm with normal perfusion bilaterally. Both ovaries demonstrates multiple tiny peripheral follicular cysts as seen in polycystic ovary syndrome. No suspicious adnexal mass or free fluid. Impression: 1. Negative for intrauterine or ectopic . 2. Multiple tiny peripheral ovary cysts bilaterally. Rule out polycystic ovary syndrome.
[2020-01-11] MEDS ORDERED: Sodium Chloride 0.9% 1000 ML 1,000 ML ONE (17:15)
[2020-01-11 17:46] LABS: Appearance CLOUDY (CLEAR); Bacteria RARE /HPF (NEGATIVE); Bilirubin NEGATIVE (NEGATIVE); Blood LARGE Ery/ul (0-5); Epithelial Cells RARE /HPF (FEW); Glucose NEGATIVE (NEGATIVE); Ketones NEGATIVE (NEGATIVE); Leukocyte Esterase TRACE (NEGATIVE); Mucus SLIGHT /HPF (NEGATIVE); Nitrite NEGATIVE (NEGATIVE); Protein,Urine Dip 100 (Negative); Specific Gravity 1.029 (1.005-1.025); Urobilinogen NEGATIVE mg/dL (0-1); WBC 51-100 /HPF (0-5)
[2020-01-11 17:47] LABS: RBC >101 /HPF (0-2)
[2020-01-11 17:52] LABS: ALBUMIN 4.5 g/dL (3.5-5.0); ALKALINE PHOSPHATASE 85 U/L (38-126); ANION GAP 12.7 MEQ/L (5-15); BLOOD UREA NITROGEN 11 mg/dL (7-17); CHLORIDE 104 mmol/L (98-107); Calcium 9.5 mg/dL (8.4-10.2); Carbon Dioxide 25 mmol/L (22-30); Creatinine 1 0.61 mg/dL (0.52-1.04); EST GLOMERULAR FILTRATION RATE > 60.0 ML/MIN; Glucose 89 mg/dL (74-106); Potassium 3.8 mmol/L (3.5-5.1); SGOT/AST 24 U/L (14-36); SGPT/ALT 17 U/L (0-35); SODIUM 138 mmol/L (137-145); Total Protein 8.3 g/dL (6.3-8.2)
[2020-01-11 17:58] LABS: Absolute Neutrophil Ct (ANC) 6.93 (1.4-6.9); BASOPHIL % 0.2 % (0.0-0.4); Basophil (Absolute #) 0.02 (0-0.4); Eosinophil % 1.4 % (0.00-5.0); Eosinophil (Absolute #) 0.14 (0-0.5); Hemoglobin 13.1 gm/dl (12.0-16.0); Lymphocyte (Absolute #) 2.36 (1.0-4.6); Lymphocytes % 23.3 % (24.0-44.0); Mean Cell Volume 87.9 fl (78-100); Mean Corpuscular Hemoglobin 26.8 pg (26-32); Mean Corpuscular Hgb Concent. 30.5 g/dl (32-36); Mean Platelet Volume 12.4 fl (7.5-11.0); Monocyte (Absolute #) 0.69 (0.0-1.3); Monocytes % 6.8 % (0.0-12.0); Neutrophil % 68.3 % (36.0-66.0); Platelet Count 220 K/mm3 (150-450); Red Blood Count 4.89 M/mm3 (4.1-5.4); Red Cell Distribution Width 13.2 % (11.5-14.0); White Blood Count 10.1 K/mm3 (4.0-10.5)
[2020-01-11 18:34] LABS: Slide Review 1 YES
--- NOTE | 2020-01-11 18:34 | ERPHSYRPT ---
- History of Present Illness Time Seen by Provider: 01/11/20 16:50 Source: patient Exam Limitations: no limitations Patient Subjective Stated Complaint: PT HERE FOR VAGINAL BLEEDING AT 1500 TODAY , HAS GONE THROUGH 2 PADS IN AN HOUR. PT HAD POS TEST AT HOME BUT N EGATIVE IN OFFICE, STATES LOWER ABD PAIN WITH CRAMPING Triage Nursing Assessment: PT WALKED IN, RESP EASY, FACE MASK IN PLACE. ABD SOFT, MOVES ALL EXT WELL Physician History: Sunny is a 24-year-old 1 para 1 who has not had a period for 6 weeks who started bleeding today quite heavily. She was using 1 pad an hour. She thinks she may have be having a miscarriage. 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 She also mentioned that she supposed to work the rest of the week. Timing/Duration: today Activites at Onset: none Quality: cramping, throbbing Onset Location: pelvic pain Severity of Pain-Max: moderate Severity of Pain-Current: moderate Prior abdominal problems: none Modifying Factors: Improves With: nothing Allergies/Adverse Reactions: amphetamine [From Adderall] Allergy (Verified 06/10/19 07:20) Swelling dextroamphetamine [From Adderall] Allergy (Verified 06/10/19 07:20) Swelling Home Medications: No Reportable Medications [No Reported Medications] 04/24/19 [History] Hx Tetanus, Diphtheria Vaccination/Date Given: Yes Hx Influenza Vaccination/Date Given: No Hx Pneumococcal Vaccination/Date Given: No Travel Risk - International Travel Have you traveled outside of the country in past 3 weeks: No - Coronavirus Screening Are you exhibiting any of the following symptoms?: No Close contact with a COVID-19 positive Pt in past 14-21 Days: No - Review of Systems Constitutional: No Fever, No Chills Eyes: No Symptoms Ears, Nose, & Throat: No Symptoms Respiratory: No Cough, No Dyspnea Cardiac: No Chest Pain, No Edema, No Syncope Abdominal/Gastrointestinal: No Abdominal Pain, No Nausea, No Vomiting, No Diarrhea Genitourinary Symptoms: Vaginal Bleeding, No Dysuria Musculoskeletal: No Back Pain, No Neck Pain Skin: No Rash Neurological: No Dizziness, No Focal Weakness, No Sensory Changes Psychological: No Symptoms Endocrine: No Symptoms All Other Systems: Reviewed and Negative - Past Medical History Pertinent Past Medical History: Yes Neurological History: No Pertinent History ENT History: No Pertinent History Cardiac History: No Pertinent History Respiratory History: No Pertinent History Endocrine Medical History: No Pertinent History Musculoskeletal History: No Pertinent History, Fractures GI Medical History: No Pertinent History History: No Pertinent History Psycho-Social History: Bipolar, Depression, Anxiety, Attention Deficit Disorder, Other Female Reproductive Disorders: No Pertinent History Other Medical History: 8 weeks - Past Surgical History Past Surgical History: Yes Neuro Surgical History: No Pertinent History Cardiac: No Pertinent History Respiratory: No Pertinent History Gastrointestinal: No Pertinent History Genitourinary: No Pertinent History Musculoskeletal: No Pertinent History Female Surgical History: No Pertinent History - Social History Smoking Status: Current some day smoker How long have you smoked: 3 years Exposure to second hand smoke: No Alcohol Use: None Drug Use: none Patient Lives Alone: No Significant Family History: no pertinent family hx - Female History Hx Last Menstrual Period: NOW Hx Now: No - Nursing Vital Signs Nursing Vital Signs: Initial Vital Signs Temperature 97.0 F 01/11/20 16:40 Pulse Rate 109 H 01/11/20 16:40 Respiratory Rate 18 01/11/20 16:40 Blood Pressure 153/104 01/11/20 16:40 O2 Sat by Pulse Oximetry 98 01/11/20 16:40 Pain Scale Pain Intensity 4 - Physical Exam General Appearance: no apparent distress, alert Eye Exam: PERRL/EOMI, eyes nml inspection Ears, Nose, Throat Exam: normal ENT inspection, TMs normal, pharynx normal, moist mucous membranes Neck Exam: normal inspection, non-tender, supple, full range of motion Respiratory Exam: normal breath sounds, lungs clear, No respiratory distress Cardiovascular Exam: regular rate/rhythm, normal heart sounds, normal peripheral pulses Gastrointestinal/Abdomen Exam: soft, No tenderness, No mass Pelvic Exam: deferred (Deferred for transvaginal ultrasound) Back Exam: normal inspection, normal range of motion, No CVA tenderness, No vertebral tenderness Extremity Exam: normal inspection, normal range of motion, pelvis stable Neurologic Exam: alert, oriented x 3, cooperative, strip picker II-XII nml as tested, normal mood/affect, sensation nml, No motor deficits Skin Exam: normal color, warm, dry Lymphatic Exam: No adenopathy SpO2: 99 Ordered Tests: Active Orders 24 hr Category Date Time Status IV Insertion STAT Care 01/11/20 16:36 Active OB <14 WKS 1ST GESTATION [US] Stat Exams 01/11/20 16:36 Completed CBC W DIFF Stat Lab 01/11/20 17:20 Completed CMP Stat Lab 01/11/20 17:20 Completed CULTURE,URINE Stat Lab 01/11/20 16:51 Received HCG, Quantitative (Inhouse) Stat Lab 01/11/20 16:37 Completed UA W/RFX UR CULTURE Stat Lab 01/11/20 16:51 Completed Medication Summary Discontinued Medications Generic Name Dose Route Start Last Admin Trade Name Freq PRN Reason Stop Dose Admin Sodium Chloride 1,000 mls @ 999 mls/hr 01/11/20 16:36 01/11/20 17:15 Sodium Chloride 0.9% 1000 Ml IV 01/11/20 17:36 999 mls/hr .Q1H1M STA Administration Sodium Chloride Confirm 01/11/20 17:15 Sodium Chloride 0.9% 1000 Ml Administered 01/11/20 17:16 Dose 1,000 mls @ ud .ROUTE .STK-MED ONE Lab/Rad Data: Laboratory Result Diagrams 01/11/20 17:20 01/11/20 17:20 Laboratory Results 01/11/20 01/11/20 01/11/20 Range/Units 17:20 17:20 16:51 WBC 10.1 (4.0-10.5) K/mm3 RBC 4.89 (4.1-5.4) M/mm3 Hgb 13.1 (12.0-16.0) gm/dl Hct 43.0 (35-47) % MCV 87.9 (78-100) fl MCH 26.8 (26-32) pg MCHC 30.5 L (32-36) g/dl RDW 13.2 (11.5-14.0) % Plt Count 220 (150-450) K/mm3 MPV 12.4 H (7.5-11.0) fl Gran % 68.3 H (36.0-66.0) % Eos # (Auto) 0.14 (0-0.5) Absolute Lymphs (auto) 2.36 (1.0-4.6) Absolute Monos (auto) 0.69 (0.0-1.3) Lymphocytes % 23.3 L (24.0-44.0) % Monocytes % 6.8 (0.0-12.0) % Eosinophils % 1.4 (0.00-5.0) % Basophils % 0.2 (0.0-0.4) % Absolute Granulocytes 6.93 H (1.4-6.9) Basophils # 0.02 (0-0.4) Sodium 138 (137-145) mmol/L Potassium 3.8 (3.5-5.1) mmol/L Chloride 104 (98-107) mmol/L Carbon Dioxide 25 (22-30) mmol/L Anion Gap 12.7 (5-15) MEQ/L BUN 11 (7-17) mg/dL Creatinine 0.61 (0.52-1.04) mg/dL Estimated GFR > 60.0 ML/MIN Glucose 89 (74-106) mg/dL Calcium 9.5 (8.4-10.2) mg/dL Total Bilirubin 0.60 (0.2-1.3) mg/dL AST 24 (14-36) U/L ALT 17 (0-35) U/L Alkaline Phosphatase 85 (38-126) U/L Serum Total Protein 8.3 H (6.3-8.2) g/dL Albumin 4.5 (3.5-5.0) g/dL Beta HCG, Quant mIU/ml Urine Color VERONIKA (YELLOW) Urine Appearance CLOUDY (CLEAR) Urine pH 5.0 (5-6) Ur Specific [place] 1.029 (1.005-1.025) Urine Protein 100 (Negative) Urine Ketones NEGATIVE (NEGATIVE) Urine Blood LARGE (0-5) Alfonso/ul Urine Nitrite NEGATIVE (NEGATIVE) Urine Bilirubin NEGATIVE (NEGATIVE) Urine Urobilinogen NEGATIVE (0-1) mg/dL Ur Leukocyte Esterase TRACE (NEGATIVE) Urine WBC (Auto) 51-100 (0-5) /HPF Urine RBC (Auto) >101 (0-2) /HPF U Epithel Cells (Auto) RARE (FEW) /HPF Urine Bacteria (Auto) RARE (NEGATIVE) /HPF Urine Mucus (Auto) SLIGHT (NEGATIVE) /HPF Urine Culture Reflexed YES (NO) Urine Glucose NEGATIVE (NEGATIVE) mg/dL 24/20 Range/Units 16:37 WBC (4.0-10.5) K/mm3 RBC (4.1-5.4) M/mm3 Hgb (12.0-16.0) gm/dl Hct (35-47) % MCV (78-100) fl MCH (26-32) pg MCHC (32-36) g/dl RDW (11.5-14.0) % Plt Count (150-450) K/mm3 MPV (7.5-11.0) fl Gran % (36.0-66.0) % Eos # (Auto) (0-0.5) Absolute Lymphs (auto) (1.0-4.6) Absolute Monos (auto) (0.0-1.3) Lymphocytes % (24.0-44.0) % Monocytes % (0.0-12.0) % Eosinophils % (0.00-5.0) % Basophils % (0.0-0.4) % Absolute Granulocytes (1.4-6.9) Basophils # (0-0.4) Sodium (137-145) mmol/L Potassium (3.5-5.1) mmol/L Chloride (98-107) mmol/L Carbon Dioxide (22-30) mmol/L Anion Gap (5-15) MEQ/L BUN (7-17) mg/dL Creatinine (0.52-1.04) mg/dL Estimated GFR ML/MIN Glucose (74-106) mg/dL Calcium (8.4-10.2) mg/dL Total Bilirubin (0.2-1.3) mg/dL AST (14-36) U/L ALT (0-35) U/L Alkaline Phosphatase (38-126) U/L Serum Total Protein (6.3-8.2) g/dL Albumin (3.5-5.0) g/dL Beta HCG, Quant < 2.39 mIU/ml Urine Color (YELLOW) Urine Appearance (CLEAR) Urine pH (5-6) Ur Specific [place] (1.005-1.025) Urine Protein (Negative) Urine Ketones (NEGATIVE) Urine Blood (0-5) Alfonso/ul Urine Nitrite (NEGATIVE) Urine Bilirubin (NEGATIVE) Urine Urobilinogen (0-1) mg/dL Ur Leukocyte Esterase (NEGATIVE) Urine WBC (Auto) (0-5) /HPF Urine RBC (Auto) (0-2) /HPF U Epithel Cells (Auto) (FEW) /HPF Urine Bacteria (Auto) (NEGATIVE) /HPF Urine Mucus (Auto) (NEGATIVE) /HPF Urine Culture Reflexed (NO) Urine Glucose (NEGATIVE) mg/dL - Progress Progress: improved Air Movement: good Blood Culture(s) Obtained: No Antibiotics given: No - Departure Departure Disposition: Home Clinical Impression: Dysfunctional or functional uterine hemorrhage Condition: Stable Critical Care Time: No Referrals: CHIQUIS MINA MD [Primary Care Provider] - Instructions: Bleeding Between Periods Forms: Work/School Release Form
[2020-01-11 18:50] VITALS: BP 137/80; PULSE 88; O2SAT 100
[2020-01-11 18:57] LABS: ABO TYPING O; Antibody Screen NEGATIVE (NEGATIVE); RH TYPING POSITIVE
== END 2020-01-11 18:57 | disposition home or self-care (01) ==
LOC: ED 16:14
DX: N93.8 Other specified abnormal uterine and vaginal bleeding (principal)
CPT/HCPCS: 36000; 36415; 76801; 80053; 81001; 84702; 85025; 86850; 86900; 86901; 87086; 96360; 99284

== ENCOUNTER 2020-04-12 15:05 | Emergency (ER) | payer OTHER ==
[2020-04-12] MEDS ORDERED: Sodium Chloride 0.9% 1000 ML 1,000 ML IV SCH (15:30)
--- NOTE | 2020-04-12 15:35 | ERPHSYRPT ---
- History of Present Illness Time Seen by Provider: 04/12/20 15:20 Source: patient Exam Limitations: no limitations Patient Subjective Stated Complaint: . Triage Nursing Assessment: . Physician History: Patient is a 24-year-old female presents to our ED with complaints of shaking. Patient states that she was at home had 2 large monster energy drinks and started to shake. Patient became panicked and states that she passed out. No trauma. No chest pain or shortness of breath. Patient vomited once. Patient states she feels much better now. This has happened in the past. No obvious Covid exposures. Patient voices no other complaints or concerns at this time. Timing/Duration: today Severity: moderate Modifying Factors: Improves With: nothing Associated Symptoms: nausea, vomiting, cough, No abdominal pain, No shortness of breath, No diaphoresis, No headaches, No loss of appetite, No malaise, No rash Allergies/Adverse Reactions: amphetamine [From Adderall] Allergy (Verified 04/12/20 15:27) Swelling dextroamphetamine [From Adderall] Allergy (Verified 04/12/20 15:28) Swelling Hx Tetanus, Diphtheria Vaccination/Date Given: No Hx Influenza Vaccination/Date Given: No Hx Pneumococcal Vaccination/Date Given: No Immunizations Up to Date: No Travel Risk - International Travel Have you traveled outside of the country in past 3 weeks: No - Coronavirus Screening Are you exhibiting any of the following symptoms?: No Close contact with a COVID-19 positive Pt in past 14-21 Days: No - Review of Systems Constitutional: No Symptoms, No Fever, No Chills Eyes: No Symptoms Ears, Nose, & Throat: No Symptoms Respiratory: No Symptoms, No Cough, No Dyspnea Cardiac: No Symptoms, No Chest Pain, No Edema, No Syncope Abdominal/Gastrointestinal: No Symptoms, No Abdominal Pain, No Nausea, No Vo miting, No Diarrhea Genitourinary Symptoms: No Symptoms, No Dysuria Musculoskeletal: No Symptoms, No Back Pain, No Neck Pain Skin: No Symptoms, No Rash Neurological: No Symptoms, No Dizziness, No Focal Weakness, No Sensory Changes Psychological: No Symptoms Endocrine: No Symptoms Hematologic/Lymphatic: No Symptoms Immunological/Allergic: No Symptoms All Other Systems: Reviewed and Negative - Past Medical History Pertinent Past Medical History: Yes Neurological History: No Pertinent History ENT History: No Pertinent History Cardiac History: No Pertinent History Respiratory History: No Pertinent History Endocrine Medical History: Diabetes Type II Musculoskeletal History: No Pertinent History, Fractures GI Medical History: No Pertinent History History: No Pertinent History Psycho-Social History: Bipolar, Depression, Anxiety, Attention Deficit Disorder, Other Female Reproductive Disorders: No Pertinent History Other Medical History: PTOS, major depressive disorder, mult personality disorder - Past Surgical History Past Surgical History: Yes Neuro Surgical History: No Pertinent History Cardiac: No Pertinent History Respiratory: No Pertinent History Gastrointestinal: No Pertinent History Genitourinary: No Pertinent History Musculoskeletal: No Pertinent History Female Surgical History: No Pertinent History - Social History Smoking Status: Light tobacco smoker How long have you smoked: 3 years Exposure to second hand smoke: No Alcohol Use: None Drug Use: none Patient Lives Alone: No Significant Family History: no pertinent family hx - Female History Hx Last Menstrual Period: 03/02/20 Hx Now: No (unknown) - Nursing Vital Signs Nursing Vital Signs: Initial Vital Signs Temperature 100.6 F 04/12/20 15:14 Pulse Rate 89 04/12/20 15:14 Respiratory Rate 14 04/12/20 15:14 Blood Pressure 154/86 04/12/20 15:14 O2 Sat by Pulse Oximetry 98 04/12/20 15:14 Pain Scale Pain Intensity 0 - Physical Exam General Appearance: no apparent distress, alert Eye Exam: PERRL/EOMI, eyes nml inspection Ears, Nose, Throat Exam: normal ENT inspection, TMs normal, pharynx normal, moist mucous membranes Neck Exam: normal inspection, non-tender, supple, full range of motion Respiratory Exam: normal breath sounds, lungs clear, No respiratory distress Cardiovascular Exam: regular rate/rhythm, normal heart sounds, normal peripheral pulses Gastrointestinal/Abdomen Exam: soft, normal bowel sounds, No tenderness, No mass Back Exam: normal inspection, normal range of motion, No CVA tenderness, No vertebral tenderness Extremity Exam: normal inspection, normal range of motion, pelvis stable Neurologic Exam: alert, oriented x 3, cooperative, normal mood/affect, nml cerebellar function, nml station & gait, sensation nml, No motor deficits Skin Exam: normal color, warm, dry, No rash Lymphatic Exam: No adenopathy SpO2 Interpretation: normal SpO2: 98 O2 Delivery: Room Air - Course Nursing assessment & vital signs reviewed: Yes EKG Interpreted by Me: RATE ([id number]), Sinus Rhythm, NORMAL AXIS, NORMAL INTERVALS Ordered Tests: Active Orders 24 hr Category Date Time Status Operations Officer STAT Care 04/12/20 15:28 Active EKG-ER Only STAT Care 04/12/20 15:27 Active IV Insertion STAT Care 04/12/20 15:27 Active Pulse Oximetry (ED) STAT Care 04/12/20 15:27 Active CBC W DIFF Stat Lab 04/12/20 16:47 Completed CMP Stat Lab 04/12/20 16:47 Completed CULTURE,URINE Stat Lab 04/12/20 16:34 Received ETHYL ALCOHOL Stat Lab 04/12/20 16:47 Completed HCG,QUALITATIVE URINE Stat Lab 04/12/20 17:33 Completed MAGNESIUM Stat Lab 04/12/20 16:47 Completed POCT GLUCOSE Stat Lab 04/12/20 15:11 Received POCT GLUCOSE Stat Lab 04/12/20 15:12 Completed TROPONIN Q3H Lab 04/12/20 16:47 Completed TROPONIN Q3H Lab 04/12/20 18:30 Ordered TROPONIN Q3H Lab 04/12/20 21:30 Ordered TROPONIN Q3H Lab 04/13/20 00:30 Ordered TROPONIN Q3H Lab 04/13/20 03:30 Ordered UA W/RFX UR CULTURE Stat Lab 04/12/20 16:34 Completed Urine Triage Profile Stat Lab 04/12/20 16:34 Completed Medication Summary Generic Name Dose Route Start Last Admin Trade Name Freq PRN Reason Stop Dose Admin Sodium Chloride 1,000 mls @ 100 mls/hr 04/12/20 15:30 04/12/20 17:47 Sodium Chloride 0.9% 1000 Ml IV 05/12/20 15:29 Infused .Q10H KING Infusion Discontinued Medications Generic Name Dose Route Start Last Admin Trade Name Freq PRN Reason Stop Dose Admin Ceftriaxone Sodium/Dextrose 1 g in 50 mls @ 100 mls/hr 04/12/20 17:09 04/12/20 17:47 Rocephin 1 Gm-D5w 50 Ml Bag IV 04/12/20 17:38 Infused STAT ONE Infusion Ceftriaxone Sodium/Dextrose Confirm 04/12/20 17:13 Rocephin 1 Gm-D5w 50 Ml Bag Administered 04/12/20 17:14 Dose 1 g in 50 mls @ ud IV .STK-MED ONE Ondansetron HCl 4 mg 04/12/20 15:48 04/12/20 15:51 Zofran Odt 4 Mg PO 04/12/20 15:49 4 mg STAT ONE Administration Ondansetron HCl Confirm 04/12/20 15:50 Zofran Odt 4 Mg Administered 04/12/20 15:51 Dose 4 mg .ROUTE .STK-MED ONE Lab/Rad Data: Laboratory Result Diagrams 04/12/20 16:47 04/12/20 16:47 Laboratory Results 04/12/20 04/12/20 04/12/20 Range/Units 17:33 16:47 16:47 WBC (4.0-10.5) K/mm3 RBC (4.1-5.4) M/mm3 Hgb (12.0-16.0) gm/dl Hct (35-47) % MCV (78-100) fl MCH (26-32) pg MCHC (32-36) g/dl RDW (11.5-14.0) % Plt Count (150-450) K/mm3 MPV (7.5-11.0) fl Gran % (36.0-66.0) % Eos # (Auto) (0-0.5) Absolute Lymphs (auto) (1.0-4.6) Absolute Monos (auto) (0.0-1.3) Lymphocytes % (24.0-44.0) % Monocytes % (0.0-12.0) % Eosinophils % (0.00-5.0) % Basophils % (0.0-0.4) % Absolute Granulocytes (1.4-6.9) Basophils # (0-0.4) Sodium 141 (137-145) mmol/L Potassium 4.1 (3.5-5.1) mmol/L Chloride 106 (98-107) mmol/L Carbon Dioxide 25 (22-30) mmol/L Anion Gap 13.9 (5-15) MEQ/L BUN 10 (7-17) mg/dL Creatinine 0.62 (0.52-1.04) mg/dL Estimated GFR > 60.0 ML/MIN Glucose 104 (74-106) mg/dL POC Glucometer (74 to 106) mg/dL Calcium 9.6 (8.4-10.2) mg/dL Magnesium 2.1 (1.6-2.3) mg/dL Total Bilirubin 0.70 (0.2-1.3) mg/dL AST 22 (14-36) U/L ALT 23 (0-35) U/L Alkaline Phosphatase 80 (38-126) U/L Troponin I < 0.012 (0.000-0.034) ng/mL Serum Total Protein 7.7 (6.3-8.2) g/dL Albumin 4.5 (3.5-5.0) g/dL Urine Color (YELLOW) Urine Appearance (CLEAR) Urine pH (5-6) Ur Specific [place] (1.005-1.025) Urine Protein (Negative) Urine Ketones (NEGATIVE) Urine Blood (0-5) Alfonso/ul Urine Nitrite (NEGATIVE) Urine Bilirubin (NEGATIVE) Urine Urobilinogen (0-1) mg/dL Ur Leukocyte Esterase (NEGATIVE) Urine WBC (Auto) (0-5) /HPF Urine RBC (Auto) (0-2) /HPF U Epithel Cells (Auto) (FEW) /HPF Urine Bacteria (Auto) (NEGATIVE) /HPF Amorphous Crystals (NEGATIVE) /HPF Urine Mucus (Auto) (NEGATIVE) /HPF Urine Culture Reflexed (NO) Urine Glucose (NEGATIVE) mg/dL Urine HCG, Qual NEGATIVE (Negative) Urine Opiates Level (NEGATIVE) Ur Methadone (NEGATIVE) Urine Barbiturates (NEGATIVE) Ur Phencyclidine (PCP) (NEGATIVE) Urine Amphetamine (NEGATIVE) U Benzodiazepine Level (NEGATIVE) Urine Cocaine (NEGATIVE) Urine Marijuana (THC) (NEGATIVE) Ethyl Alcohol < 10 (0-10) mg/dL 04/12/20 04/12/20 04/12/20 Range/Units 16:47 16:34 16:34 WBC 8.7 (4.0-10.5) K/mm3 RBC 4.45 (4.1-5.4) M/mm3 Hgb 11.7 L (12.0-16.0) gm/dl Hct 38.3 (35-47) % MCV 86.1 (78-100) fl MCH 26.3 (26-32) pg MCHC 30.5 L (32-36) g/dl RDW 13.5 (11.5-14.0) % Plt Count 266 (150-450) K/mm3 MPV 11.5 H (7.5-11.0) fl Gran % 79.7 H (36.0-66.0) % Eos # (Auto) 0.02 (0-0.5) Absolute Lymphs (auto) 1.28 (1.0-4.6) Absolute Monos (auto) 0.46 (0.0-1.3) Lymphocytes % 14.7 L (24.0-44.0) % Monocytes % 5.3 (0.0-12.0) % Eosinophils % 0.2 (0.00-5.0) % Basophils % 0.1 (0.0-0.4) % Absolute Granulocytes 6.92 H (1.4-6.9) Basophils # 0.01 (0-0.4) Sodium (137-145) mmol/L Potassium (3.5-5.1) mmol/L Chloride (98-107) mmol/L Carbon Dioxide (22-30) mmol/L Anion Gap (5-15) MEQ/L BUN (7-17) mg/dL Creatinine (0.52-1.04) mg/dL Estimated GFR ML/MIN Glucose (74-106) mg/dL POC Glucometer (74 to 106) mg/dL Calcium (8.4-10.2) mg/dL Magnesium (1.6-2.3) mg/dL Total Bilirubin (0.2-1.3) mg/dL AST (14-36) U/L ALT (0-35) U/L Alkaline Phosphatase (38-126) U/L Troponin I (0.000-0.034) ng/mL Serum Total Protein (6.3-8.2) g/dL Albumin (3.5-5.0) g/dL Urine Color YELLOW (YELLOW) Urine Appearance CLOUDY (CLEAR) Urine pH 8.0 (5-6) Ur Specific [place] 1.027 (1.005-1.025) Urine Protein 100 (Negative) Urine Ketones SMALL (NEGATIVE) Urine Blood NEGATIVE (0-5) Alfonso/ul Urine Nitrite NEGATIVE (NEGATIVE) Urine Bilirubin NEGATIVE (NEGATIVE) Urine Urobilinogen NEGATIVE (0-1) mg/dL Ur Leukocyte Esterase LARGE (NEGATIVE) Urine WBC (Auto) 16-25 (0-5) /HPF Urine RBC (Auto) 6-10 (0-2) /HPF U Epithel Cells (Auto) FEW (FEW) /HPF Urine Bacteria (Auto) NONE (NEGATIVE) /HPF Amorphous Crystals FEW (NEGATIVE) /HPF Urine Mucus (Auto) SLIGHT (NEGATIVE) /HPF Urine Culture Reflexed YES (NO) Urine Glucose NEGATIVE (NEGATIVE) mg/dL Urine HCG, Qual (Negative) Urine Opiates Level NEGATIVE (NEGATIVE) Ur Methadone NEGATIVE (NEGATIVE) Urine Barbiturates NEGATIVE (NEGATIVE) Ur Phencyclidine (PCP) NEGATIVE (NEGATIVE) Urine Amphetamine NEGATIVE (NEGATIVE) U Benzodiazepine Level NEGATIVE (NEGATIVE) Urine Cocaine NEGATIVE (NEGATIVE) Urine Marijuana (THC) NEGATIVE (NEGATIVE) Ethyl Alcohol (0-10) mg/dL 04/12/20 Range/Units 15:12 WBC (4.0-10.5) K/mm3 RBC (4.1-5.4) M/mm3 Hgb (12.0-16.0) gm/dl Hct (35-47) % MCV (78-100) fl MCH (26-32) pg MCHC (32-36) g/dl RDW (11.5-14.0) % Plt Count (150-450) K/mm3 MPV (7.5-11.0) fl Gran % (36.0-66.0) % Eos # (Auto) (0-0.5) Absolute Lymphs (auto) (1.0-4.6) Absolute Monos (auto) (0.0-1.3) Lymphocytes % (24.0-44.0) % Monocytes % (0.0-12.0) % Eosinophils % (0.00-5.0) % Basophils % (0.0-0.4) % Absolute Granulocytes (1.4-6.9) Basophils # (0-0.4) Sodium (137-145) mmol/L Potassium (3.5-5.1) mmol/L Chloride (98-107) mmol/L Carbon Dioxide (22-30) mmol/L Anion Gap (5-15) MEQ/L BUN (7-17) mg/dL Creatinine (0.52-1.04) mg/dL Estimated GFR ML/MIN Glucose (74-106) mg/dL POC Glucometer 110 H (74 to 106) mg/dL Calcium (8.4-10.2) mg/dL Magnesium (1.6-2.3) mg/dL Total Bilirubin (0.2-1.3) mg/dL AST (14-36) U/L ALT (0-35) U/L Alkaline Phosphatase (38-126) U/L Troponin I (0.000-0.034) ng/mL Serum Total Protein (6.3-8.2) g/dL Albumin (3.5-5.0) g/dL Urine Color (YELLOW) Urine Appearance (CLEAR) Urine pH (5-6) Ur Specific [place] (1.005-1.025) Urine Protein (Negative) Urine Ketones (NEGATIVE) Urine Blood (0-5) Alfonso/ul Urine Nitrite (NEGATIVE) Urine Bilirubin (NEGATIVE) Urine Urobilinogen (0-1) mg/dL Ur Leukocyte Esterase (NEGATIVE) Urine WBC (Auto) (0-5) /HPF Urine RBC (Auto) (0-2) /HPF U Epithel Cells (Auto) (FEW) /HPF Urine Bacteria (Auto) (NEGATIVE) /HPF Amorphous Crystals (NEGATIVE) /HPF Urine Mucus (Auto) (NEGATIVE) /HPF Urine Culture Reflexed (NO) Urine Glucose (NEGATIVE) mg/dL Urine HCG, Qual (Negative) Urine Opiates Level (NEGATIVE) Ur Methadone (NEGATIVE) Urine Barbiturates (NEGATIVE) Ur Phencyclidine (PCP) (NEGATIVE) Urine Amphetamine (NEGATIVE) U Benzodiazepine Level (NEGATIVE) Urine Cocaine (NEGATIVE) Urine Marijuana (THC) (NEGATIVE) Ethyl Alcohol (0-10) mg/dL - Progress Progress: improved Progress Note: 04/12/20 18:02 Patient reassessed. She feels well. Shaking resolved. Work-up reveals a significant urinary tract infection. Patient treated with intravenous Rocephin. Antibiotic prescription forwarded to patient's pharmacy. Patient discharged. She voices no other complaints or concerns at this time. Patient states she will will follow up with her primary care doctor within 48 hours for reevaluation. Patient advised not to drink large amounts of stimulant soft drinks. 04/12/20 18:04 Counseled pt/family regarding: lab results, diagnosis, need for follow-up - Departure Departure Disposition: Home Clinical Impression: UTI (urinary tract infection) Condition: Stable Critical Care Time: No Referrals: CHIQUIS MINA MD [Primary Care Provider] - Additional Instructions: Discharge/Care Plan JACINTO PADRON was seen on 04/12/20 in the Emergency Room. The patient was counseled regarding Diagnosis,Lab results, Imaging studies, need for follow up and when to return to the Emergency Room. Prescriptions given: Discharge Note I have spoken with the patient and/or caregivers. I have explained the patient's condition, diagnosis and treatment plan based on the information available to me at this time. I have answered the patient's and/or caregiver's questions and addressed any concerns. The patient and/or caregivers have as good understanding of the patient's diagnosis, condition and treatment plan as can be expected at this point. The vital signs have been stable. The patient's condition is stable and appropriate for discharge from the emergency department. The patient will pursue further outpatient evaluation with the primary care physician or other designated or consulting physician as outlined in the discha rge instructions. The patient and/or caregivers are agreeable to this plan of care and follow-up instructions have been explained in detail. The patient and/or caregivers have received these instruction. The patient/and or caregivers are aware that any significant change in condition or worsening of symptoms should prompt an immediate return to this or the closest emergency department or call 911. Prescriptions: Cephalexin Mh 500 mg [Keflex 500 mg] 500 mg PO QID #20 capsule
[2020-04-12] MEDS ORDERED: Sodium Chloride 0.9% 1000 ML 1,000 ML ONE (15:38)
[2020-04-12] MEDS ORDERED: ZOFRAN ODT 4 MG PO ONE (15:48)
[2020-04-12] MEDS ORDERED: ZOFRAN ODT 4 MG ONE (15:50)
[2020-04-12 16:39] VITALS: BP 109/70
[2020-04-12 16:49] LABS: Absolute Neutrophil Ct (ANC) 6.92 (1.4-6.9); BASOPHIL % 0.1 % (0.0-0.4); Basophil (Absolute #) 0.01 (0-0.4); Eosinophil % 0.2 % (0.00-5.0); Eosinophil (Absolute #) 0.02 (0-0.5); Hematocrit 38.3 % (35-47); Hemoglobin 11.7 gm/dl (12.0-16.0); Lymphocyte (Absolute #) 1.28 (1.0-4.6); Lymphocytes % 14.7 % (24.0-44.0); Mean Cell Volume 86.1 fl (78-100); Mean Corpuscular Hemoglobin 26.3 pg (26-32); Mean Corpuscular Hgb Concent. 30.5 g/dl (32-36); Mean Platelet Volume 11.5 fl (7.5-11.0); Monocyte (Absolute #) 0.46 (0.0-1.3); Monocytes % 5.3 % (0.0-12.0); Neutrophil % 79.7 % (36.0-66.0); Platelet Count 266 K/mm3 (150-450); Red Blood Count 4.45 M/mm3 (4.1-5.4); Red Cell Distribution Width 13.5 % (11.5-14.0); White Blood Count 8.7 K/mm3 (4.0-10.5)
[2020-04-12 16:59] LABS: Amourphous Crystal FEW /HPF (NEGATIVE); Appearance CLOUDY (CLEAR); Bilirubin NEGATIVE (NEGATIVE); Blood NEGATIVE Ery/ul (0-5); Epithelial Cells FEW /HPF (FEW); Glucose NEGATIVE (NEGATIVE); Ketones SMALL (NEGATIVE); Leukocyte Esterase LARGE (NEGATIVE); Mucus SLIGHT /HPF (NEGATIVE); Nitrite NEGATIVE (NEGATIVE); Protein,Urine Dip 100 (Negative); Specific Gravity 1.027 (1.005-1.025); Urobilinogen NEGATIVE mg/dL (0-1)
[2020-04-12 17:02] VITALS: PULSE 60; O2SAT 98
[2020-04-12] MEDS ORDERED: ROCEPHIN 1 Gm-D5w 50 ml Bag** 1 G/50 ML IVPB IV ONE ×2 (17:09→17:13)
[2020-04-12 17:14] LABS: ALBUMIN 4.5 g/dL (3.5-5.0); ALKALINE PHOSPHATASE 80 U/L (38-126); ANION GAP 13.9 MEQ/L (5-15); BLOOD UREA NITROGEN 10 mg/dL (7-17); CHLORIDE 106 mmol/L (98-107); Calcium 9.6 mg/dL (8.4-10.2); Carbon Dioxide 25 mmol/L (22-30); Creatinine 1 0.62 mg/dL (0.52-1.04); EST GLOMERULAR FILTRATION RATE > 60.0 ML/MIN; Glucose 104 mg/dL (74-106); MAGNESIUM 2.1 mg/dL (1.6-2.3); Potassium 4.1 mmol/L (3.5-5.1); SGOT/AST 22 U/L (14-36); SGPT/ALT 23 U/L (0-35); SODIUM 141 mmol/L (137-145); Total Protein 7.7 g/dL (6.3-8.2)
[2020-04-12 17:26] LABS: Amphetamine,Urine NEGATIVE (NEGATIVE); Barbiturate,Urine NEGATIVE (NEGATIVE); Benzodiazepine,Urine NEGATIVE (NEGATIVE); Cocaine,Urine NEGATIVE (NEGATIVE); Methadone,Urine NEGATIVE (NEGATIVE); Opiate,Urine NEGATIVE (NEGATIVE); PCP,Urine NEGATIVE (NEGATIVE); THC,Urine NEGATIVE (NEGATIVE)
[2020-04-12 17:28] LABS: ETHYL ALCOHOL < 10 mg/dL (0-10)
== END 2020-04-12 18:23 | disposition home or self-care (01) ==
LOC: ED 15:05
DX: N39.0 Urinary tract infection, site not specified (principal)
CPT/HCPCS: 36000; 36415; 80053; 80307; 81001; 82947; 83735; 84484; 84703; 85025; 87077; 87086; 87186; 93005; 93041; 94760; 96365; 99284; G0480; J0696; Q0162

== ENCOUNTER 2020-06-08 16:33 | Emergency (ER) | payer OTHER ==
[2020-06-08] MEDS ORDERED: NORCO 5/325 MG ONE (16:52)
[2020-06-08] MEDS: NORCO 5/325 MG PO ONE (16:53)
--- NOTE | 2020-06-08 17:02 | XRAY ---
Indication: Pain following fall. Comparison: None 3 view right ankle demonstrates mild anterolateral soft tissue swelling. No other bony, articular, or soft tissue abnormalities.
--- NOTE | 2020-06-08 17:08 | ERPHSYRPT ---
- History of Present Illness Time Seen by Provider: 06/08/20 16:39 Source: patient Exam Limitations: no limitations Patient Subjective Stated Complaint: Right outer ankle injury Triage Nursing Assessment: Patient brought back to ED via w/c and transferred self to bed. Patient A+O X3. Patient's skin pink, warm and dry. Patient complains of right outer ankle pain after falling down stairs prior to coming into ED. Patient states she heard a "pop". Right outer ankle noted to be swollen. Patient complains of constant aching pain with intermittent, sharp pain with ambulation. Physician History: 24 years old female presented in the ER with chief complaint of right ankle pain and swelling after she missed a step and fell causing twisting her right ankle. Patient report moderate intensity sharp pain which is more with movements and having difficulty weightbearing. Patient also report almost 3 months ago she twisted her ankle and since then having off-and-on pain which is gotten very worse after fall prior to arrival. No injury anywhere else. Method of Injury: fell, twisted Occurred: just prior to arrival Quality: sharpness Severity of Pain-Max: moderate Severity of Pain-Current: moderate Lower Extremities Pain: ankle: right Modifying Factors: Improves With: immobilization. Worsens With: movement Associated Symptoms: popping sensation Allergies/Adverse Reactions: amphetamine [From Adderall] Allergy (Verified 06/08/20 16:48) Swelling dextroamphetamine [From Adderall] Allergy (Verified 06/08/20 16:48) Swelling Hx Tetanus, Diphtheria Vaccination/Date Given: No Hx Influenza Vaccination/Date Given: No Hx Pneumococcal Vaccination/Date Given: No Immunizations Up to Date: Yes Travel Risk - International Travel Have you traveled outside of the country in past 3 weeks: No - Coronavirus Screening Are you exhibiting any of the following symptoms?: No Close contact with a COVID-19 positive Pt in past 14-21 Days: No - Review of Systems Constitutional: No Symptoms Eyes: No Symptoms Ears, Nose, & Throat: No Symptoms Respiratory: No Symptoms Cardiac: No Symptoms Abdominal/Gastrointestinal: No Symptoms Musculoskeletal: Injury, Joint Pain, Joint Swelling Skin: No Symptoms Neurological: No Symptoms Psychological: No Symptoms Endocrine: No Symptoms Hematologic/Lymphatic: No Symptoms - Past Medical History Pertinent Past Medical History: Yes Neurological History: No Pertinent History ENT History: No Pertinent History Cardiac History: No Pertinent History Respiratory History: No Pertinent History Endocrine Medical History: Diabetes Type II Musculoskeletal History: No Pertinent History, Fractures GI Medical History: No Pertinent History History: No Pertinent History Psycho-Social History: Bipolar, Depression, Anxiety, Attention Deficit Disorder, Other Female Reproductive Disorders: No Pertinent History Other Medical History: PTOS, major depressive disorder, mult personality disorder - Past Surgical History Past Surgical History: Yes Neuro Surgical History: No Pertinent History Cardiac: No Pertinent History Respiratory: No Pertinent History Gastrointestinal: No Pertinent History Genitourinary: No Pertinent History Musculoskeletal: No Pertinent History Female Surgical History: No Pertinent History - Social History Smoking Status: Light tobacco smoker How long have you smoked: 3 years Exposure to second hand smoke: No Alcohol Use: None Drug Use: none Patient Lives Alone: No Significant Family History: no pertinent family hx - Female History Hx Last Menstrual Period: May 28, 2020 Hx Now: No - Nursing Vital Signs Nursing Vital Signs: Initial Vital Signs Temperature 97.9 F 06/08/20 16:41 Pulse Rate 104 H 06/08/20 16:41 Respiratory Rate 18 06/08/20 16:41 Blood Pressure 167/100 06/08/20 16:41 O2 Sat by Pulse Oximetry 98 06/08/20 16:41 Pain Scale Pain Intensity 5 - Physical Exam General Appearance: no apparent distress Neck Exam: normal inspection, supple, full range of motion Cardiovascular/Respiratory Exam: normal breath sounds, regular rate/rhythm Back Exam: normal inspection, normal range of motion Ankle Exam: right ankle: bone tenderness (Lateral malleolus, anterior ankle), limited range of motion, pain, soft tissue tenderness, swelling, left ankle: non-tender, normal inspection, normal range of motion, no evidence of injury Foot Exam: bilateral foot: non-tender, normal inspection, normal range of motion Neuro/Tendon Exam: normal sensation, normal motor functions Mental Status Exam: alert, oriented x 3, cooperative Skin Exam: normal color SpO2 Interpretation: normal SpO2: 98 O2 Delivery: Room Air Ordered Tests: Active Orders 24 hr Category Date Time Status ANKLE (3 VIEWS) Stat Exams 06/08/20 16:49 Completed Medication Summary Discontinued Medications Generic Name Dose Route Start Last Admin Trade Name Freq PRN Reason Stop Dose Admin Hydrocodone Bitart/Acetaminophen 1 tab 06/08/20 16:53 06/08/20 16:53 Murdock 5/325 Mg PO 06/08/20 16:54 1 tab STAT ONE Administration Hydrocodone Bitart/Acetaminophen Confirm 06/08/20 16:52 Murdock 5/325 Mg Administered 06/08/20 16:53 Dose 1 tab .ROUTE .STK-MED ONE - Progress Progress: improved, pain not gone completely Progress Note: 06/08/20 she is given Murdock for symptomatic relief. Ruled out fracture dislo cation. I believe patient has ankle sprain, placed in Aircast crutches and outpatient follow-up with podiatry. Counseled pt/family regarding: diagnosis, need for follow-up, rad results - Departure Departure Disposition: Home Clinical Impression: High ankle sprain of right lower extremity Qualifiers: Encounter type: initial encounter Qualified Code(s): S93.491A - Sprain of other ligament of right ankle, initial encounter Condition: Stable Critical Care Time: No Referrals: CIHQUIS MINA MD [Primary Care Provider] - Follow Up with PCP/3 days INGE ZHANG NP [NON-STAFF PHY W/O PRIVILEGES] - (2-3 days for reevaluation.) Instructions: Ankle Sprain (DC) Additional Instructions: Take Tylenol/ibuprofen as needed for pain. Elevation, apply ice intermittently. Weightbearing as tolerated. Avoid exertional activities. Follow-up with podiatry/Ortho clinic for reevaluation. Return to ER for any worsening. Forms: Ortho Referral Prescriptions: Ibuprofen 600 mg PO Q6HPRN PRN 10 Days #20 tablet PRN Reason: Pain
[2020-06-08 17:21] VITALS: BP 137/71; PULSE 94
[2020-06-08 21:35] VITALS: O2SAT 98
== END 2020-06-08 17:21 | disposition home or self-care (01) ==
LOC: ED 16:33
DX: M25.571 Pain in right ankle and joints of right foot (principal); M25.471 Effusion, right ankle; S93.491A Sprain of other ligament of right ankle, initial encounter; W10.9XXA Fall (on) (from) unspecified stairs and steps, initial encounter
CPT/HCPCS: 73610; 99283; A9270-GY

== ENCOUNTER 2023-10-16 18:13 | Observation (INO) | payer OTHER ==
[2023-10-16 19:43] LABS: AMNISURE TEST RESULTS NEGATIVE (NEGATIVE)
[2023-10-16 19:50] LABS: Amphetamine,Urine NEGATIVE (NEGATIVE); Barbiturate,Urine NEGATIVE (NEGATIVE); Benzodiazepine,Urine NEGATIVE (NEGATIVE); Cocaine,Urine NEGATIVE (NEGATIVE); Methadone,Urine NEGATIVE (NEGATIVE); Opiate,Urine NEGATIVE (NEGATIVE); PCP,Urine NEGATIVE (NEGATIVE); THC,Urine NEGATIVE (NEGATIVE)
[2023-10-16 19:51] LABS: Appearance Cloudy (Clear); Bilirubin Negative (Negative); Blood Negative (Negative); Glucose, Urine Negative (Negative); Hyaline Casts NONE SEEN /LPF (0-2); Ketones >=160 (Negative); Leukocyte Esterase Small (Negative); Nitrite Negative (Negative); Protein,Urine Dip 30 (Negative); Specific Gravity >=1.030 (1.005-1.030)
[2023-10-16 19:52] LABS: ADD URINE CULTURE? YES (NO); Bacteria Moderate /HPF (None Seen); Epithelial Cells Moderate /HPF (None Seen)
[2023-10-16 20:27] LABS: Absolute Neutrophil Ct (ANC) 6.36 x10^3/uL (1.4-6.9); BASOPHIL % 0.1 % (0.0-0.4); Basophil (Absolute #) 0.01 x10^3/uL (0-0.4); Eosinophil % 0.5 % (0.00-5.0); Eosinophil (Absolute #) 0.04 x10^3/uL (0-0.5); Hematocrit 28.6 % (35-47); Hemoglobin 8.8 g/dL (12.0-16.0); IMMATURE GRAN # 0.03 x10^3u/L (0.00-0.03); IMMATURE GRAN % 0.3 % (0.00-0.4); Lymphocyte (Absolute #) 1.68 x10^3/uL (1.0-4.6); Lymphocytes % 19.5 % (24.0-44.0); Mean Cell Volume 82.2 fL (78-100); Mean Corpuscular Hemoglobin 25.3 pg (26-32); Mean Corpuscular Hgb Concent. 30.8 g/dL (32-36); Mean Platelet Volume 10.4 fL (7.5-11.0); Monocyte (Absolute #) 0.49 x10^3/uL (0.0-1.3); Monocytes % 5.7 % (0.0-12.0); Neutrophil % 73.9 % (36.0-66.0); Platelet Count 196 x10^3/uL (150-450); Red Blood Count 3.48 x10^6/uL (4.1-5.4); Red Cell Distribution Width 13.5 % (11.5-14.0); White Blood Count 8.6 x10^3/uL (4.0-10.5)
[2023-10-16 20:40] LABS: ALBUMIN 3.9 g/dL (3.5-5.0); ANION GAP 14.1 MEQ/L (5-15); BILIRUBIN,TOTAL 1.8 mg/dL (0.2-1.3); Creatinine 1 0.36 mg/dL (0.52-1.04); EST GLOMERULAR FILTRATION RATE 143.5 ML/MIN; Potassium 3.6 mmol/L (3.5-5.1); Total Protein 7.3 g/dL (6.3-8.2)
[2023-10-16] MEDS ORDERED: Lactated Ringers 2,000 ML IV ONE (21:24)
[2023-10-16] MEDS ORDERED: Sodium Chloride 0.9% 1000 ML 1,000 ML IV STA (21:32)
[2023-10-16] MEDS: Lactated Ringers 1,000 ML IV ONE (22:40)
[2023-10-16] MEDS ORDERED: Sodium Chloride 0.9% 1000 ML 1,000 ML IV SCH (22:45)
[2023-10-16] MEDS: Pepcid 20 MG PO SCH (23:25)
[2023-10-16] MEDS: ZOFRAN ODT 4 MG PO PRN (23:25)
[2023-10-16] MEDS: Lactated Ringers 1,000 ML IV SCH (23:35)
[2023-10-17] MEDS: TYLENOL EXTRA STRENGTH 500 MG PO PRN (00:24)
[2023-10-17] MEDS: ROCEPHIN 1 GM / 100 ML NaCl 1 GM/100 ML IVPB IV ONE (05:19)
[2023-10-17 07:34] LABS: Absolute Neutrophil Ct (ANC) 4.04 x10^3/uL (1.4-6.9); BASOPHIL % 0.3 % (0.0-0.4); Basophil (Absolute #) 0.02 x10^3/uL (0-0.4); Eosinophil % 0.8 % (0.00-5.0); Eosinophil (Absolute #) 0.05 x10^3/uL (0-0.5); Hematocrit 25.9 % (35-47); Hemoglobin 7.9 g/dL (12.0-16.0); IMMATURE GRAN # 0.03 x10^3u/L (0.00-0.03); IMMATURE GRAN % 0.5 % (0.00-0.4); Lymphocyte (Absolute #) 1.77 x10^3/uL (1.0-4.6); Lymphocytes % 27.7 % (24.0-44.0); Mean Corpuscular Hemoglobin 25.3 pg (26-32); Mean Corpuscular Hgb Concent. 30.5 g/dL (32-36); Mean Platelet Volume 10.5 fL (7.5-11.0); Monocyte (Absolute #) 0.47 x10^3/uL (0.0-1.3); Monocytes % 7.4 % (0.0-12.0); Neutrophil % 63.3 % (36.0-66.0); Platelet Count 168 x10^3/uL (150-450); Red Blood Count 3.12 x10^6/uL (4.1-5.4); Red Cell Distribution Width 13.7 % (11.5-14.0); White Blood Count 6.4 x10^3/uL (4.0-10.5)
[2023-10-17 07:49] LABS: RETICULOCYTE % 2.1 % (0.6-2.6); RETICULOCYTE HEMOGLOBIN 24.8 pg (28-38)
[2023-10-17 07:58] LABS: ALBUMIN 3.1 g/dL (3.5-5.0); ANION GAP 8.8 MEQ/L (5-15); BILIRUBIN,TOTAL 1.2 mg/dL (0.2-1.3); Calcium 8.5 mg/dL (8.4-10.2); Creatinine 1 0.35 mg/dL (0.52-1.04); EST GLOMERULAR FILTRATION RATE 144.5 ML/MIN; Potassium 3.5 mmol/L (3.5-5.1); Total Protein 6.1 g/dL (6.3-8.2)
--- NOTE | 2023-10-17 09:20 | XRAY ---
Indication: Low HANSEL. Gestational diabetes. Ultrasound biophysical profile study performed. Comparison: None Single intrauterine currently in cephalic presentation. Umbilical cord seen adjacent to neck. heart rate 160 bpm. Four-quadrant HANSEL is 8.7 cm, largest pocket 3.7 cm. 2 points given for movement, tone, and amniotic fluid volume. 0 points for breathing. Impression: Total biophysical profile score is 6 out of 8. Incidental partial nuchal cord.
[2023-10-17 09:30] VITALS: RESP 14; O2SAT 98
--- NOTE | 2023-10-17 09:54 | PCM.HP ---
History of Present Illness - Chief Complaint Chief Complaint: labor check History of Present Illness: is a 28 year old female. 28 YO IUP 35 4/7 WKS WITH HX OF PSYCH DISORDER SUICIDAL IDEATION IN THE PAST PRESENTED TO LABOR DELIVERY YESTERDAY FOR EVALUATION OF POSSIBLE SROM. CO CONTINUED NAUSEA AND WAS ON ZOFRAN PRIOR TO COMING TO L&D AND DENIES VOMITING AND DIARRHEA. STATES IRREGULAR UTERINE CONTX AND WAS BEING FOLLOWED IN [facility] FOR CARE. PT STATES HAVING HX OF LOW FLUID AND RECENT SONOGRAM SHOWED POSSIBLE DILATED COLON. LABS YESTERDAY INDICATING LOW CO2 AND URINE WITH ELEVATED SPECIFIC GRAVITY AND LARGE KETONES. EXAM; 50/-3 BY NURSE EXAM BPP; 10/25 NST; CATEGORY 1 LAB; UA; ELEVATED SPECIFIC GRAVITY AND LARGE KETONES CBC; HGB; 7.9 TODAY A/P IUP 35 4/7 WKS WITH ANEMIA; SEVERE DEHYDRATION WILL CONTINUE IV HYDRATION WILL NEED IRON TRANSFUSION SHOULD HAVE BIWEEKLY NST SHOULD FU SCHEDULED WITH DR MINA WILL GIVE RX FOR IRON SUPPLEMENTATION WITH VITAMIN C Medications & Allergies Home Medications: Home Medication List Famotidine 20 mg [Pepcid 20 MG] 20 mg PO DAILY 10/16/23 [History Confirmed 10/16/23] ondansetron HCL [Zofran] 8 mg PO DAILY 10/16/23 [History Confirmed 10/16/23] Allergies/Adverse Reactions: Allergies Allergy/AdvReac Type Severity Reaction Status Date / Time amphetamine [From Adderall] Allergy Anaphylactic Verified 10/16/23 19:37 Reaction dextroamphetamine Allergy Anaphylactic Verified 10/16/23 19:37 [From Adderall] Reaction - Past Medical History Past Medical History: Yes Neurological History: No Pertinent History ENT History: No Pertinent History Cardiac History: No Pertinent History Respiratory History: No Pertinent History Endocrine Medical History: Diabetes Type II Musculoskelatal History: No Pertinent History, Fractures GI Medical History: No Pertinent History History: No Pertinent History Pyscho-Social History: Bipolar, Depression, Anxiety, Attention Deficit Disorder, Other Reproductive Disorders: No Pertinent History Comment: PTOS, major depressive disorder, mult personality disorder - Female History Are you now?: Yes - Past Surgical History Past Surgical History: Yes Neuro Surgical History: No Pertinent History Cardiac History: No Pertinent History Respiratory Surgery: No Pertinent History GI Surgical History: No Pertinent History Genitourinary Surgical Hx: No Pertinent History Musculskeletal Surgical Hx: No Pertinent History Female Surgical History: No Pertinent History Significant Family History: no pertinent family hx - Social History Smoking Status: Former smoker How long have you smoked: 3 years Exposure to second hand smoke: No Alcohol: Occasionally Drug Use: none - Social Determinants of Health Will the patient participate in the screening: Yes Do you worry about a steady place to live?: No Do you have any problems with any of the following?: No known problems In the past 12 months,have you had to go without utilities?: No Have you or anyone in your house had to go without enough: No Transportation Issues: Yes Has anyone in your support network made you feel unsafe?: Yes Does the patient want assistance with any of the above?: Yes Comment: issues with - Physical Exam Vital Signs: Vital Signs - 24 hr Temp Pulse Resp BP BP Pulse Ox 10/17/23 09:00 97.6 F 64 14 121/60 98 10/17/23 05:31 98.4 F 63 15 101/55 97 10/17/23 00:00 98.3 F 77 16 111/59 100 10/16/23 18:31 122 H 14 128/76 97 10/16/23 18:13 98.4 F 14 128/76 General Appearance: no apparent distress Neurologic Exam: alert, oriented x 3 Pelvic Exam: other (/-3 BY NURSE EXAM) Results - Labs Lab/Micro Results: Lab Results-Last 24 Hours 10/16/23 10/16/23 10/16/23 Range/Units 19:29 19:29 20:25 WBC 8.6 (4.0-10.5) x10^3/uL RBC 3.48 L (4.1-5.4) x10^6/uL Hgb 8.8 L (12.0-16.0) g/dL Hct 28.6 L (35-47) % MCV 82.2 (78-100) fL MCH 25.3 L (26-32) pg MCHC 30.8 L (32-36) g/dL RDW 13.5 (11.5-14.0) % Plt Count 196 (150-450) x10^3/uL MPV 10.4 (7.5-11.0) fL Gran % 73.9 H (36.0-66.0) % Immature Gran % (Auto) 0.3 (0.00-0.4) % Reticulocyte % (Auto) (0.6-2.6) % Nucleat RBC Rel Count 0.0 (0.00-0.1) % Eos # (Auto) 0.04 (0-0.5) x10^3/uL Immature Gran # (Auto) 0.03 (0.00-0.03) x10^3u/L Absolute Lymphs (auto) 1.68 (1.0-4.6) x10^3/uL Absolute Monos (auto) 0.49 (0.0-1.3) x10^3/uL Absolute Nucleated RBC 0.00 (0.00-0.01) x10^3u/L Lymphocytes % 19.5 L (24.0-44.0) % Monocytes % 5.7 (0.0-12.0) % Eosinophils % 0.5 (0.00-5.0) % Basophils % 0.1 (0.0-0.4) % Absolute Granulocytes 6.36 (1.4-6.9) x10^3/uL Basophils # 0.01 (0-0.4) x10^3/uL Retic Hgb Content (28-38) pg Sodium (135-145) mmol/L Potassium (3.5-5.1) mmol/L Chloride (98-107) mmol/L Carbon Dioxide (22-30) mmol/L Anion Gap (5-15) MEQ/L BUN (7-17) mg/dL Creatinine (0.52-1.04) mg/dL Estimated GFR ML/MIN Glucose (74-106) mg/dL Hemoglobin A1c (4.5-6.0) % Calcium (8.4-10.2) mg/dL Total Bilirubin (0.2-1.3) mg/dL AST (14-36) U/L ALT (0-35) U/L Alkaline Phosphatase (38-126) U/L Lactate Dehydrogenase (120-246) U/L Serum Total Protein (6.3-8.2) g/dL Albumin (3.5-5.0) g/dL Urine Color Dark Yellow A (Yellow) Urine Appearance Cloudy A (Clear) Urine pH 6.0 (4.6-8.0) Ur Specific [place] >=1.030 A (1.005-1.030) Urine Protein 30 (Negative) Urine Glucose (UA) Negative (Negative) mg/dL Urine Ketones >=160 A (Negative) Urine Blood Negative (Negative) Urine Nitrite Negative (Negative) Urine Bilirubin Negative (Negative) Urine Urobilinogen 1.0 A (0.2) mg/dL Ur Leukocyte Esterase Small A (Negative) U Hyaline Cast (Auto) NONE SEEN (0-2) /LPF Urine Microscopic RBC 3-5 (0-5) /HPF Urine Microscopic WBC 6-10 A (0-5) /HPF Ur Epithelial Cells Moderate A (None Seen) /HPF Urine Bacteria Moderate A (None Seen) /HPF Urine Culture Reflexed YES (NO) Urine Opiates Level NEGATIVE (NEGATIVE) Ur Methadone NEGATIVE (NEGATIVE) Urine Barbiturates NEGATIVE (NEGATIVE) Ur Phencyclidine (PCP) NEGATIVE (NEGATIVE) Urine Amphetamine NEGATIVE (NEGATIVE) U Benzodiazepine Level NEGATIVE (NEGATIVE) Urine Cocaine NEGATIVE (NEGATIVE) Urine Marijuana (THC) NEGATIVE (NEGATIVE) 10/16/23 10/16/23 10/17/23 Range/Units 20:25 20:25 07:25 WBC 6.4 (4.0-10.5) x10^3/uL RBC 3.12 L (4.1-5.4) x10^6/uL Hgb 7.9 L (12.0-16.0) g/dL Hct 25.9 L (35-47) % MCV 83.0 (78-100) fL MCH 25.3 L (26-32) pg MCHC 30.5 L (32-36) g/dL RDW 13.7 (11.5-14.0) % Plt Count 168 (150-450) x10^3/uL MPV 10.5 (7.5-11.0) fL Gran % 63.3 (36.0-66.0) % Immature Gran % (Auto) 0.5 H (0.00-0.4) % Reticulocyte % (Auto) 2.1 (0.6-2.6) % Nucleat RBC Rel Count 0.0 (0.00-0.1) % Eos # (Auto) 0.05 (0-0.5) x10^3/uL Immature Gran # (Auto) 0.03 (0.00-0.03) x10^3u/L Absolute Lymphs (auto) 1.77 (1.0-4.6) x10^3/uL Absolute Monos (auto) 0.47 (0.0-1.3) x10^3/uL Absolute Nucleated RBC 0.00 (0.00-0.01) x10^3u/L Lymphocytes % 27.7 (24.0-44.0) % Monocytes % 7.4 (0.0-12.0) % Eosinophils % 0.8 (0.00-5.0) % Basophils % 0.3 (0.0-0.4) % Absolute Granulocytes 4.04 (1.4-6.9) x10^3/uL Basophils # 0.02 (0-0.4) x10^3/uL Retic Hgb Content 24.8 L (28-38) pg Sodium 134 L (135-145) mmol/L Potassium 3.6 (3.5-5.1) mmol/L Chloride 108 H (98-107) mmol/L Carbon Dioxide 15 L* (22-30) mmol/L Anion Gap 14.1 (5-15) MEQ/L BUN 8 (7-17) mg/dL Creatinine 0.36 L (0.52-1.04) mg/dL Estimated GFR 143.5 ML/MIN Glucose 78 (74-106) mg/dL Hemoglobin A1c 4.97 (4.5-6.0) % Calcium 9.0 (8.4-10.2) mg/dL Total Bilirubin 1.80 H (0.2-1.3) mg/dL AST 20 (14-36) U/L ALT 13 (0-35) U/L Alkaline Phosphatase 102 (38-126) U/L Lactate Dehydrogenase (120-246) U/L Serum Total Protein 7.3 (6.3-8.2) g/dL Albumin 3.9 (3.5-5.0) g/dL Urine Color (Yellow) Urine Appearance (Clear) Urine pH (4.6-8.0) Ur Specific [place] (1.005-1.030) Urine Protein (Negative) Urine Glucose (UA) (Negative) mg/dL Urine Ketones (Negative) Urine Blood (Negative) Urine Nitrite (Negative) Urine Bilirubin (Negative) Urine Urobilinogen (0.2) mg/dL Ur Leukocyte Esterase (Negative) U Hyaline Cast (Auto) (0-2) /LPF Urine Microscopic RBC (0-5) /HPF Urine Microscopic WBC (0-5) /HPF Ur Epithelial Cells (None Seen) /HPF Urine Bacteria (None Seen) /HPF Urine Culture Reflexed (NO) Urine Opiates Level (NEGATIVE) Ur Methadone (NEGATIVE) Urine Barbiturates (NEGATIVE) Ur Phencyclidine (PCP) (NEGATIVE) Urine Amphetamine (NEGATIVE) U Benzodiazepine Level (NEGATIVE) Urine Cocaine (NEGATIVE) Urine Marijuana (THC) (NEGATIVE) 10/17/23 Range/Units 07:25 WBC (4.0-10.5) x10^3/uL RBC (4.1-5.4) x10^6/uL Hgb (12.0-16.0) g/dL Hct (35-47) % MCV (78-100) fL MCH (26-32) pg MCHC (32-36) g/dL RDW (11.5-14.0) % Plt Count (150-450) x10^3/uL MPV (7.5-11.0) fL Gran % (36.0-66.0) % Immature Gran % (Auto) (0.00-0.4) % Reticulocyte % (Auto) (0.6-2.6) % Nucleat RBC Rel Count (0.00-0.1) % Eos # (Auto) (0-0.5) x10^3/uL Immature Gran # (Auto) (0.00-0.03) x10^3u/L Absolute Lymphs (auto) (1.0-4.6) x10^3/uL Absolute Monos (auto) (0.0-1.3) x10^3/uL Absolute Nucleated RBC (0.00-0.01) x10^3u/L Lymphocytes % (24.0-44.0) % Monocytes % (0.0-12.0) % Eosinophils % (0.00-5.0) % Basophils % (0.0-0.4) % Absolute Granulocytes (1.4-6.9) x10^3/uL Basophils # (0-0.4) x10^3/uL Retic Hgb Content (28-38) pg Sodium 134 L (135-145) mmol/L Potassium 3.5 (3.5-5.1) mmol/L Chloride 110 H (98-107) mmol/L Carbon Dioxide 19 L (22-30) mmol/L Anion Gap 8.8 (5-15) MEQ/L BUN 5 L (7-17) mg/dL Creatinine 0.35 L (0.52-1.04) mg/dL Estimated GFR 144.5 ML/MIN Glucose 83 (74-106) mg/dL Hemoglobin A1c (4.5-6.0) % Calcium 8.5 (8.4-10.2) mg/dL Total Bilirubin 1.20 (0.2-1.3) mg/dL AST 16 (14-36) U/L ALT 12 (0-35) U/L Alkaline Phosphatase 87 (38-126) U/L Lactate Dehydrogenase 125 (120-246) U/L Serum Total Protein 6.1 L (6.3-8.2) g/dL Albumin 3.1 L (3.5-5.0) g/dL Urine Color (Yellow) Urine Appearance (Clear) Urine pH (4.6-8.0) Ur Specific [place] (1.005-1.030) Urine Protein (Negative) Urine Glucose (UA) (Negative) mg/dL Urine Ketones (Negative) Urine Blood (Negative) Urine Nitrite (Negative) Urine Bilirubin (Negative) Urine Urobilinogen (0.2) mg/dL Ur Leukocyte Esterase (Negative) U Hyaline Cast (Auto) (0-2) /LPF Urine Microscopic RBC (0-5) /HPF Urine Microscopic WBC (0-5) /HPF Ur Epithelial Cells (None Seen) /HPF Urine Bacteria (None Seen) /HPF Urine Culture Reflexed (NO) Urine Opiates Level (NEGATIVE) Ur Methadone (NEGATIVE) Urine Barbiturates (NEGATIVE) Ur Phencyclidine (PCP) (NEGATIVE) Urine Amphetamine (NEGATIVE) U Benzodiazepine Level (NEGATIVE) Urine Cocaine (NEGATIVE) Urine Marijuana (THC) (NEGATIVE) - Radiology Impressions Radiology Exams & Impressions: Radiology Procedures Category Date Time Status OB BIOPHYSICAL W/O NON STRESS [US] Urgent Exams 10/17/23 07:00 Completed Assessment/Plan (1) Iron deficiency Current Visit: Yes Status: Acute Code(s): E61.1 - IRON DEFICIENCY (2) Severe dehydration Current Visit: Yes Status: Acute Code(s): E86.0 - DEHYDRATION (3) UTI (urinary tract infection) Current Visit: No Status: Acute Qualifiers: Urinary tract infection type: site unspecified Hematuria presence: with hematuria Qualified Code(s): N39.0 - Urinary tract infection, site not specified; R31.9 - Hematuria, unspecified Code(s): N39.0 - URINARY TRACT INFECTION, SITE NOT SPECIFIED
[2023-10-17] MEDS: FERAHEME IV SCH (11:55)
[2023-10-17] MEDS: SODIUM CHLORIDE 0.9% IV SCH (11:55)
[2023-10-17 12:43] LABS: Appearance Clear (Clear); Bacteria Rare /HPF (None Seen); Bilirubin Negative (Negative); Blood Negative (Negative); Epithelial Cells Rare /HPF (None Seen); Glucose, Urine Negative (Negative); Hyaline Casts NONE SEEN /LPF (0-2); Ketones 40 (Negative); Leukocyte Esterase Small (Negative); Nitrite Negative (Negative); Ph 6.5 (4.6-8.0); Protein,Urine Dip Negative (Negative); RBC 0-2 /HPF (0-5); Specific Gravity 1.015 (1.005-1.030); Urobilinogen 0.2 mg/dL (0.2)
[2023-10-17 12:48] LABS: ADD URINE CULTURE? NO (NO)
[2023-10-17 17:20] VITALS: BP 104/51; PULSE 67; TEMP 98.2
== END 2023-10-17 18:30 | disposition home or self-care (01) ==
LOC: OB 18:13
PROVIDERS: ADMIT Obstetrics & Gynecology; ATTEND Obstetrics & Gynecology
DX: Z34.83 Encounter for supervision of other normal pregnancy, third trimester (principal); Z3A.35 35 weeks gestation of pregnancy; Z59.82 Transportation insecurity; Z63.0 Problems in relationship with spouse or partner
CPT/HCPCS: 36415; 76819; 80053; 80307; 81001; 83036; 83615; 84112; 85025; 85045; 85046; 87086; G0378; G0379; J0696; Q0162; A9270-GY; Q0138